=== PATIENT | male | born 1970 | race Caucasian/White ===

== ENCOUNTER 2019-03-14 11:48 | Emergency (ER) | payer OTHER ==
[2019-03-14 11:52] VITALS: RESP 18; TEMP 97.3
[2019-03-14] MEDS ORDERED: ASPIRIN 81 MG PO STA (13:21)
[2019-03-14] MEDS ORDERED: SODIUM CHLORIDE 0.9% 500 ML 500 ML IV STA (13:21)
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
[2019-03-14 13:47] LABS: Basophils % (A) 0 %; Eosinophils # (A) 0.1 k/uL (0-0.7); Eosinophils % (A) 1 %; HCT 44.1 % (39.0-53.0); HGB 15.2 gm/dL (13.0-17.5); Lymphocytes # (A) 1.2 k/uL (1.0-4.8); Lymphocytes % (A) 18 %; MCH 30.9 pg (25.0-35.0); MCHC 34.4 g/dL (31.0-37.0); MCV 89.9 fL (80.0-100.0); Mean Platelet Volume 6.8; Monocytes # (A) 0.4 k/uL (0-1.0); Monocytes % (A) 5 %; Neutrophils # (A) 4.9 k/uL (1.3-7.7); Neutrophils % (A) 74 %; Platelet Count 250 k/uL (150-450); RBC 4.91 m/uL (4.30-5.90); RDW 14.6 % (11.5-15.5); WBC 6.6 k/uL (3.8-10.6)
--- NOTE | 2019-03-14 13:51 | XR ---
EXAMINATION TYPE: XR chest 2V DATE OF EXAM: 03/14/2019 COMPARISON: 03/20/2014 HISTORY: Chest and back pain TECHNIQUE: Frontal and lateral views of the chest are obtained. FINDINGS: There is no focal air space opacity, pleural effusion, or pneumothorax seen. The cardiac silhouette size is within normal limits. The osseous structures are intact. IMPRESSION: No acute cardiopulmonary process.
[2019-03-14 14:02] LABS: ALT 28 U/L (21-72); AST 19 U/L (17-59); African American GFR (CKD) >90 (>60 ml/min/1.73 sqM); Albumin 4.7 g/dL (3.5-5.0); Alkaline Phosphatase 59 U/L (38-126); Anion Gap 13 mmol/L; Blood Urea Nitrogen 12 mg/dL (9-20); Carbon Dioxide 23 mmol/L (22-30); Chloride 103 mmol/L (98-107); Glucose 90 mg/dL (74-99); Magnesium 1.8 mg/dL (1.6-2.3); Potassium 4.3 mmol/L (3.5-5.1); Sodium 139 mmol/L (137-145); Total Bilirubin 0.5 mg/dL (0.2-1.3); Total Protein 7.6 g/dL (6.3-8.2)
[2019-03-14 14:32] LABS: D-Dimer <0.17 mg/L FEU (<0.60); INR 0.9 (<1.2); Partial Thromboplastin Time 23.7 sec (22.0-30.0); Prothrombin Time 9.8 sec (9.0-12.0)
[2019-03-14 14:42] VITALS: BP 132/84; PULSE 86
== END 2019-03-14 15:12 | disposition home or self-care (01) ==
LOC: EC 11:48
DX: R07.89 Other chest pain (principal); R07.81 Pleurodynia; R19.7 Diarrhea, unspecified; F41.9 Anxiety disorder, unspecified; R45.1 Restlessness and agitation; F32.9 Major depressive disorder, single episode, unspecified; F17.200 Nicotine dependence, unspecified, uncomplicated; Z79.899 Other long term (current) drug therapy; Z87.820 Personal history of traumatic brain injury; Z86.14 Personal history of Methicillin resistant Staphylococcus aureus infection
CPT/HCPCS: 36415; 71046; 80053; 83735; 84484; 85025; 85379; 85610; 85730; 93005; 99284

== ENCOUNTER 2019-04-03 07:36 | Inpatient (IN) | payer MEDICAID, OTHER ==
[2019-04-03] MEDS ORDERED: LORazepam 1 MG TAB PO STA (07:59)
--- NOTE | 2019-04-03 08:24 | XR ---
EXAMINATION TYPE: XR hand complete LT , 4 VIEWS DATE OF EXAM ORDERED: 04/03/2019 HISTORY: pain, first digit pain. COMPARISON: Previous study dated 03/18/2014. FINDINGS: There is been a partial amputation of the distal phalanx of the left long finger. No acute fracture or dislocation is seen. IMPRESSION: 1. NO ACUTE OSSEOUS LESION. 2. EVIDENCE OF OLD TRAUMA.
[2019-04-03] MEDS ORDERED: LORazepam 2 MG/ML INJ IM STA ×2 (08:39→17:07)
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
[2019-04-03 09:06] LABS: Amphetamine Screen,Urine Detected (NotDetected); Barbiturate Screen,Urine Not Detected (NotDetected); Benzodiazepines Screen,Urine Not Detected (NotDetected); Cocaine Screen,Urine Not Detected (NotDetected); Methadone Screen, Urine Not Detected (NotDetected); Opiate Screen,Urine Not Detected (NotDetected); Oxycodone Screen, Urine Not Detected (NotDetected); Phencyclidine Screen,Urine Not Detected (NotDetected); Tricyclic Antidepressant,Urine Not Detected (NotDetected); Urn Cannabinoid Scrn Detected (NotDetected)
[2019-04-03] MEDS ORDERED: HALOPERIDOL LACTATE 5 MG/ML 1 ML VIAL IM STA (19:11)
[2019-04-04] MEDS ORDERED: LORazepam 1 MG TAB PO STA (03:30)
[2019-04-04] MEDS ORDERED: ALBUTEROL NEBULIZED 2.5 MG/3 ML INHALATION PRN (15:10)
[2019-04-04] MEDS ORDERED: MAG HYDROX/AL HYDROX/SIMETH 30 ML CUP PO PRN (15:11)
[2019-04-04] MEDS ORDERED: ACETAMINOPHEN TAB 325 MG TAB PO PRN (15:11)
[2019-04-04] MEDS ORDERED: LORazepam 1 MG TAB PO PRN (15:11)
[2019-04-04] MEDS ORDERED: MAGNESIUM HYDROXIDE 2,400 MG/10 ML CUP PO PRN (15:11)
[2019-04-04] MEDS ORDERED: ZIPRASIDONE 20 MG VIAL IM PRN (15:11)
[2019-04-04] MEDS ORDERED: LORazepam 2 MG/ML INJ IM PRN (15:13)
[2019-04-04] MEDS ORDERED: ALBUTEROL INHALER 60 PUFF/8 GM INHALER INHALATION PRN (15:21)
[2019-04-04] MEDS: NICOTINE 14MG/24HR PATCH TRANSDERM SCH ×2 (15:59→16:00)
[2019-04-05 08:56] LABS: Basophils % (A) 1 %; Eosinophils # (A) 0.2 k/uL (0-0.7); Eosinophils % (A) 3 %; HCT 42.4 % (39.0-53.0); HGB 14.5 gm/dL (13.0-17.5); Lymphocytes # (A) 2.1 k/uL (1.0-4.8); Lymphocytes % (A) 31 %; MCH 30.4 pg (25.0-35.0); MCHC 34.2 g/dL (31.0-37.0); MCV 88.8 fL (80.0-100.0); Mean Platelet Volume 6.5; Monocytes # (A) 0.4 k/uL (0-1.0); Monocytes % (A) 5 %; Neutrophils % (A) 59 %; Platelet Count 290 k/uL (150-450); RBC 4.77 m/uL (4.30-5.90); RDW 15.1 % (11.5-15.5); WBC 6.8 k/uL (3.8-10.6)
[2019-04-05] MEDS ORDERED: FLUoxetine HCL 20 MG CAP PO SCH (09:00)
[2019-04-05 09:43] LABS: ALT 21 U/L (21-72); AST 25 U/L (17-59); African American GFR (CKD) >90 (>60 ml/min/1.73 sqM); Albumin 4.3 g/dL (3.5-5.0); Alkaline Phosphatase 61 U/L (38-126); Anion Gap 7 mmol/L; Blood Urea Nitrogen 20 mg/dL (9-20); Calcium 9.5 mg/dL (8.4-10.2); Carbon Dioxide 29 mmol/L (22-30); Chloride 105 mmol/L (98-107); Cholesterol 151 mg/dL (<200); Glucose 94 mg/dL (74-99); HDL Cholesterol 67 mg/dL (40-60); LDL Cholesterol,Calculated 52 mg/dL (0-99); Potassium 4.6 mmol/L (3.5-5.1); Sodium 141 mmol/L (137-145); Total Bilirubin 0.7 mg/dL (0.2-1.3); Triglycerides 158 mg/dL (<150)
[2019-04-05] MEDS: MULTIVITAMINS, THERA 1 EACH TAB PO SCH (09:44)
[2019-04-05] MEDS: NICOTINE 14MG/24HR PATCH TRANSDERM SCH ×2 (09:44→09:50)
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
[2019-04-05] MEDS ORDERED: hydrOXYzine PAMOATE 25 MG CAP PO PRN (12:54)
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
[2019-04-05] MEDS: risperiDONE 1 MG TAB PO SCH ×2 (14:26→21:33)
--- NOTE | 2019-04-05 16:18 | XR ---
EXAMINATION TYPE: XR cervical spine comp DATE OF EXAM: 04/05/2019 TECHNIQUE: Frontal, lateral, oblique, swimmers, and open mouth view of the cervical spine are obtaine d. HISTORY: head injury COMPARISON: None FINDINGS: The cervical spine is visualized in its entirety from C1 thru the top of T1 level, it is s atisfactory in alignment without evidence of acute fracture or dislocation. The pre-vertebral soft t issue appears within normal limits. The C1-C2 articulation is within normal limits on the open mouth view. Minimal retrolisthesis is seen of C3 on C4 and C4 and C5. Multilevel uncovertebral hypertrophy and facet arthropathy are noted. Small anterior osteophytes and intervertebral disc space narrowing are present. There is at least mild neural foraminal narrowing present at C3-C4, C4-C5, C5-C6, and C6 -C7 on the right hand at C5, C5-C6 and C6-C7 on the left. IMPRESSION: No acute fracture or malalignment is seen in the cervical spine. Moderate multilevel deg enerative disc disease as detailed above. Degree of neuroforaminal narrowing could be further assesse d with MRI.
[2019-04-05 19:38] LABS: Hemoglobin A1C 5.4 % (4.0-6.0)
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
[2019-04-06] MEDS: MULTIVITAMINS, THERA 1 EACH TAB PO SCH (08:01)
[2019-04-06] MEDS: risperiDONE 1 MG TAB PO SCH ×2 (08:01→21:40)
[2019-04-06] MEDS: NICOTINE 14MG/24HR PATCH TRANSDERM SCH (08:01)
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
--- NOTE | 2019-04-06 14:54 | P.PN ---
Progress Note - Text Progress Note Date: 04/06/[address] Head also without intracranial structural changes. Suggest outpatient neuro follow-up for continued management of post-concussive syndrome. No further inpatient neuro recs. We will sign off. Please call with new ?.
[2019-04-06] MEDS: SERTRALINE 50 MG TAB PO SCH (14:59)
[2019-04-06] MEDS: IBUPROFEN 600 MG TAB PO PRN (17:47)
[2019-04-07] MEDS: IBUPROFEN 600 MG TAB PO PRN ×2 (07:41→22:08)
[2019-04-07] MEDS: MULTIVITAMINS, THERA 1 EACH TAB PO SCH (08:15)
[2019-04-07] MEDS: NICOTINE 14MG/24HR PATCH TRANSDERM SCH (08:15)
[2019-04-07] MEDS: risperiDONE 1 MG TAB PO SCH ×2 (08:15→22:08)
[2019-04-07] MEDS: SERTRALINE 50 MG TAB PO SCH (08:15)
--- NOTE | 2019-04-07 08:48 | EEG ---
ELECTROENCEPHALOGRAM REPORT DATE OF TESTIN04/06/2019. CLINICAL PROBLEM: Head injury with dizziness, mood disturbance and psychosis. EEG was requested to rule out epileptic activity. MEDICATIONS: Geodon, Risperdal, multivitamin, milk of magnesia, Ativan, Motrin, Vistaril, albuterol, Maalox, Tylenol. TYPE OF RECORDING: Bedside tracing using the 10-20 international electrode placement system. No sedation was given prior to the beginning of this recording. FINDINGS: The background of this tracing is seen with a symmetric alpha rhythm of 8-10 hertz that attenuates on eye opening and returns upon eye closure. There are scattered eye blink and EMG artifacts. Photic stimulation elicits a symmetric driving response. Hyperventilation is not performed in this recording. There is no definitive sleep architecture seen. There is no background asymmetry, ictal or interictal patterns appreciated. IMPRESSION: This is a normal awake electroencephalogram without background asymmetry or epileptiform discharges. Clinical correlation is advised. STU / SELVINN: [id number] / MTDEmery
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
[2019-04-07] MEDS: hydrOXYzine PAMOATE 25 MG CAP PO SCH (22:08)
[2019-04-08] MEDS: hydrOXYzine PAMOATE 25 MG CAP PO SCH ×2 (08:41→20:12)
[2019-04-08] MEDS: IBUPROFEN 600 MG TAB PO PRN (08:41)
[2019-04-08] MEDS: MULTIVITAMINS, THERA 1 EACH TAB PO SCH (08:41)
[2019-04-08] MEDS: risperiDONE 1 MG TAB PO SCH ×2 (08:42→20:12)
[2019-04-08] MEDS: NICOTINE 14MG/24HR PATCH TRANSDERM SCH (08:42)
[2019-04-08] MEDS ORDERED: SERTRALINE 100 MG TAB PO SCH (09:00)
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
[2019-04-08] MEDS: ACETAMINOPHEN TAB 325 MG TAB PO PRN (18:57)
[2019-04-09] MEDS: ACETAMINOPHEN TAB 325 MG TAB PO PRN ×3 (03:22→20:17)
[2019-04-09] MEDS: NICOTINE 14MG/24HR PATCH TRANSDERM SCH (07:52)
[2019-04-09] MEDS: hydrOXYzine PAMOATE 25 MG CAP PO SCH ×2 (07:52→20:16)
[2019-04-09] MEDS: MULTIVITAMINS, THERA 1 EACH TAB PO SCH (07:52)
[2019-04-09] MEDS: risperiDONE 1 MG TAB PO SCH ×2 (07:52→20:16)
[2019-04-09] MEDS ORDERED: SERTRALINE 100 MG TAB PO SCH (09:00)
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
[2019-04-10] MEDS: ACETAMINOPHEN TAB 325 MG TAB PO PRN ×3 (08:06→19:53)
[2019-04-10] MEDS: MULTIVITAMINS, THERA 1 EACH TAB PO SCH (08:08)
[2019-04-10] MEDS: SERTRALINE 50 MG TAB PO SCH (08:09)
[2019-04-10] MEDS: hydrOXYzine PAMOATE 25 MG CAP PO SCH ×2 (08:09→19:52)
[2019-04-10] MEDS: NICOTINE 14MG/24HR PATCH TRANSDERM SCH (08:09)
[2019-04-10] MEDS: risperiDONE 1 MG TAB PO SCH ×2 (08:09→19:52)
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
[2019-04-11] MEDS: ACETAMINOPHEN TAB 325 MG TAB PO PRN ×2 (06:53→19:35)
[2019-04-11] MEDS: hydrOXYzine PAMOATE 25 MG CAP PO SCH ×2 (08:32→20:12)
[2019-04-11] MEDS: MULTIVITAMINS, THERA 1 EACH TAB PO SCH (08:32)
[2019-04-11] MEDS: risperiDONE 1 MG TAB PO SCH (08:32)
[2019-04-11] MEDS: SERTRALINE 50 MG TAB PO SCH (08:32)
[2019-04-11] MEDS: NICOTINE 14MG/24HR PATCH TRANSDERM SCH (08:32)
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
[2019-04-11] MEDS: DIVALPROEX ER 250 MG TAB.ER.24H PO SCH ×2 (12:00→20:12)
[2019-04-11] MEDS: risperiDONE 2 MG TAB PO SCH (20:12)
[2019-04-12] MEDS: ACETAMINOPHEN TAB 325 MG TAB PO PRN ×3 (02:58→17:55)
[2019-04-12] MEDS: hydrOXYzine PAMOATE 25 MG CAP PO SCH ×2 (09:08→19:57)
[2019-04-12] MEDS: SERTRALINE 50 MG TAB PO SCH (09:08)
[2019-04-12] MEDS: DIVALPROEX ER 250 MG TAB.ER.24H PO SCH (09:08)
[2019-04-12] MEDS: MULTIVITAMINS, THERA 1 EACH TAB PO SCH (09:08)
[2019-04-12] MEDS: risperiDONE 1 MG TAB PO SCH (09:08)
[2019-04-12] MEDS: NICOTINE 14MG/24HR PATCH TRANSDERM SCH (09:11)
--- NOTE | 2019-04-12 13:48 | P.PN ---
Progress Note - Text Progress Note Date: 04/12/19 Interval History: Patient was seen in his room and was agreeable to speak to life underwriter in his room with the lights on. Patient had put on his sunglasses during the interview. He stated that his "hallucinations" and paranoia has been improving and claims that he has not experienced any hallucinations in the past 24 hours. He states that he is feeling less angry today and feels like his mood is "more stable". Patient denies any depressive symptoms at this time denies any anxiety. Patient spoke about different options for following up with psychiatrist as an outpatient and where he should be going. Patient claims that he is continuing to improve mildly with regard to his irritability. He continues to state that he is having headaches related to his head injury however did state that the Depakote has been helping it and state that he was able to function much better yesterday. Patient states that he is sleeping well on the current medications. At this time patient denies any suicidal or homical ideations, intent or plan. Patient denies any auditory, visual hallucinations and denies any paranoia or delusions. Patient denies any side effects from the medications and has been compliant with meds. Mental Status Exam: General Appearance: Patient appears to be stated age is alert, directable and cooperative. Patient has fair hygiene and fair grooming. Patient is wearing sunglasses. Behavior: Patient is calmly seated without any agitated behavior. He appears to be aggravated by bright lights. Speech: Patient's speech is fluent and nonpressured. Mood/Affect: Mood is improving mildly, affect is congruent and constricted. Suicidality/Homicidality: Patient denies having any suicidal or homicidal ideation intent or plan. Perceptions: Patient denies any auditory or visual hallucinations. Though content/process: There is no evidence of any delusional thought content and thought process is linear and goal-directed. Memory and concentration: AOX3, grossly intact for the purposes of this session Judgment and insight: fair, improving mildly. 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 History of traumatic brain injury Plan: -Patient continues to meet criteria for inpatient psychiatric admission for symptom stabilization and safety. Patient has signed adult voluntary form and medication consent and was placed in patient's chart. -Medications: Will continue with with Risperdal 1 mg +2 mg for psychosis/irritability. We'll continue with Vistaril to 25 mg twice a day scheduled for anxiety. Will continue with Zoloft 150 mg for mood/anxiety. We'll increase Depakote 250 mg + 500 mg a day for both headache prophylaxis and mood stabilization. -Acetaminophen and ibuprofen for headaches. -When necessary Ativan for agitation/aggression. -Appreciate recommendations from neurology consult. Will consider MRI if patient is not improving during clinical course. Patient will need to be following up with a neurologist as an outpatient upon discharge. -Patient did receive a computed tomography scan of his head which did not show any acute changes. X-ray of cervical spine did not show any acute fracture or malalignment however showed mild degenerative disc disease. Patient underwent an EEG which did not show any seizure activity as per the neurology note. -NRT -Nicorette gum when necessary -SW on board for discharge planning.
[2019-04-12] MEDS: risperiDONE 2 MG TAB PO SCH (19:58)
[2019-04-12] MEDS ORDERED: DIVALPROEX ER 500 MG TAB.ER.24H PO SCH (21:00)
[2019-04-13] MEDS: IBUPROFEN 600 MG TAB PO PRN (04:12)
[2019-04-13] MEDS: SERTRALINE 50 MG TAB PO SCH (08:45)
[2019-04-13] MEDS: hydrOXYzine PAMOATE 25 MG CAP PO SCH ×2 (08:45→20:14)
[2019-04-13] MEDS: MULTIVITAMINS, THERA 1 EACH TAB PO SCH (08:45)
[2019-04-13] MEDS: risperiDONE 1 MG TAB PO SCH ×2 (08:45→20:14)
[2019-04-13] MEDS: NICOTINE 14MG/24HR PATCH TRANSDERM SCH (08:46)
[2019-04-13] MEDS ORDERED: DIVALPROEX ER 250 MG TAB.ER.24H PO SCH (09:00)
--- NOTE | 2019-04-13 10:16 | P.PN ---
Progress Note - Text Progress Note Date: 04/13/19 Interval History: Patient was seen in his room and was agreeable to speak to senior medical writer in his room. Patient did not need sunglasses during the interview today and appeared to have a brighter affect and more energy. Patient states that he had poor sleep last night and claimed that he only slept 2-3 hours and laid awake the rest of the time. He stated that his "hallucinations" and paranoia has been improving however did claim that he heard the telephone ringing late at night which she does not know if it's real or not. He states that his irritability has been improving and currently denies any depressive symptoms at this time denies any anxiety. Patient stated that his headaches have improved dramatically since being started on the Depakote and having the dose increased. Patient stated that today he is going to go to more groups and try to participate as much as he can. At this time patient denies any suicidal or homical ideations, intent or plan. Patient denies any side effects from the medications and has been compliant with meds. Mental Status Exam: General Appearance: Patient appears to be stated age is alert, directable and cooperative. Patient has fair hygiene and fair grooming. Behavior: Patient is calmly seated without any agitated behavior. Speech: Patient's speech is fluent and nonpressured. Mood/Affect: Mood is improving mildly, affect is congruent Suicidality/Homicidality: Patient denies having any suicidal or homicidal ideation intent or plan. Perceptions: Patient denies any auditory or visual hallucinations. Though content/process: There is no evidence of any delusional thought content and thought process is linear and goal-directed. Memory and concentration: AOX3, grossly intact for the purposes of this session Judgment and insight: fair, improving mildly. 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 History of traumatic brain injury Plan: -Patient continues to meet criteria for inpatient psychiatric admission for symptom stabilization and safety. Patient has signed adult voluntary form and medication consent and was placed in patient's chart. -Medications: Will switch Risperdal to 3 mg nightly for psychosis/irritability to help with sleep. We'll continue with Vistaril to 25 mg twice a day scheduled for anxiety. Will continue with Zoloft 150 mg for mood/anxiety. We'll increase and switch Depakote to 1000 mg daily at bedtime for both headache prophylaxis and mood stabilization. -Acetaminophen and ibuprofen for headaches. -When necessary Ativan for agitation/aggression. -Neurology recommendations - Will consider MRI if patient is not improving during clinical course. Patient will need to be following up with a neurologist as an outpatient upon discharge. -Patient did receive a computed tomography scan of his head which did not show any acute changes. X-ray of cervical spine did not show any acute fracture or malalignment however showed mild degenerative disc disease. Patient underwent an EEG which did not show any seizure activity as per the neurology note. -NRT -Nicorette gum when necessary -SW on board for discharge planning.
[2019-04-13] MEDS: DIVALPROEX ER 500 MG TAB.ER.24H PO SCH (20:14)
[2019-04-14] MEDS: ACETAMINOPHEN TAB 325 MG TAB PO PRN ×2 (04:37→12:13)
[2019-04-14 05:36] VITALS: RESP 16
[2019-04-14] MEDS: SERTRALINE 50 MG TAB PO SCH (08:43)
[2019-04-14] MEDS: hydrOXYzine PAMOATE 25 MG CAP PO SCH ×2 (08:43→20:36)
[2019-04-14] MEDS: MULTIVITAMINS, THERA 1 EACH TAB PO SCH (08:43)
[2019-04-14] MEDS: NICOTINE 14MG/24HR PATCH TRANSDERM SCH (08:55)
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
[2019-04-14] MEDS: IBUPROFEN 600 MG TAB PO PRN (16:24)
[2019-04-14] MEDS: DIVALPROEX ER 500 MG TAB.ER.24H PO SCH (20:35)
[2019-04-14] MEDS: risperiDONE 1 MG TAB PO SCH (20:35)
[2019-04-14] MEDS: MELATONIN 5 MG TABLET PO SCH (20:35)
[2019-04-15] MEDS: NICOTINE 14MG/24HR PATCH TRANSDERM SCH (07:58)
[2019-04-15] MEDS: hydrOXYzine PAMOATE 25 MG CAP PO SCH ×2 (07:58→20:08)
[2019-04-15] MEDS: MULTIVITAMINS, THERA 1 EACH TAB PO SCH (07:58)
[2019-04-15] MEDS: SERTRALINE 50 MG TAB PO SCH (07:58)
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
[2019-04-15] MEDS: ACETAMINOPHEN TAB 325 MG TAB PO PRN (16:37)
[2019-04-15] MEDS: DIVALPROEX ER 500 MG TAB.ER.24H PO SCH (20:08)
[2019-04-15] MEDS: risperiDONE 1 MG TAB PO SCH (20:08)
[2019-04-15] MEDS: MELATONIN 5 MG TABLET PO SCH (21:25)
[2019-04-16] MEDS: ACETAMINOPHEN TAB 325 MG TAB PO PRN (04:14)
[2019-04-16] MEDS: MULTIVITAMINS, THERA 1 EACH TAB PO SCH (07:52)
[2019-04-16] MEDS: hydrOXYzine PAMOATE 25 MG CAP PO SCH ×2 (07:52→20:26)
[2019-04-16] MEDS: NICOTINE 14MG/24HR PATCH TRANSDERM SCH (07:52)
[2019-04-16] MEDS: SERTRALINE 50 MG TAB PO SCH (07:53)
--- NOTE | 2019-04-16 12:15 | P.PN ---
Progress Note - Text Interval history: The patient's found in his room he follows me to an interview room. He indicates his mood is getting better. He is reporting no auditory or visual hallucinations. He has no questions or concerns regarding his medication. He states he's been increasing his group participation. Appetite is stable. He has no questions or concerns today. Mental status exam: The patient is a balding male appearing his stated age. He stressors own clothing hygiene grooming are adequate he wears eyeglasses. Eye contact is appropriate speech is fluent spontaneous nonpressured. He indicates his mood is getting better. Affect is euthymic. He reports no suicidal or homicidal ideation intent or plan. He reports no au ditory or visual hallucinations or any specific delusions. He demonstrates no evidence of hypomania or jorge. Insight and judgment improving. He reports future oriented thinking. He demonstrates no verbal or physical aggressiveness he demonstrates no involuntary repetitive movements. Plan: The patient will continue his current psychotropic medication. He is encouraged to fully participate in the milieu. We will monitor him for safety. Vital signs reviewed.
[2019-04-16] MEDS: DIVALPROEX ER 500 MG TAB.ER.24H PO SCH (20:26)
[2019-04-16] MEDS: MELATONIN 5 MG TABLET PO SCH (20:26)
[2019-04-16] MEDS: risperiDONE 1 MG TAB PO SCH (20:27)
[2019-04-17 06:55] VITALS: TEMP 98.2
[2019-04-17] MEDS: NICOTINE 14MG/24HR PATCH TRANSDERM SCH (07:36)
[2019-04-17] MEDS: hydrOXYzine PAMOATE 25 MG CAP PO SCH ×2 (07:37→20:18)
[2019-04-17] MEDS: SERTRALINE 50 MG TAB PO SCH (07:37)
[2019-04-17] MEDS: MULTIVITAMINS, THERA 1 EACH TAB PO SCH (07:37)
--- NOTE | 2019-04-17 11:53 | P.PN ---
Progress Note - Text Interval history: The patient is found in the hallway he follows me to an interview room. He indicates his mood is improving. He feels that the Zoloft dose may be too high as he feels more energetic than usual. He wants to consider reducing to 100 mg. He's been compliant with his medication. He has been attending groups. He indicates he slept well last night appetite is stable. He states that he continues to remind himself that he needs to discontinue use of alcohol. He demonstrates future oriented thinking. Mental status exam: The patient is alert he is a balding male he is wearing his own clothing hygiene grooming adequate. Speech is fluent spontaneous nonpressured. He has a healing scar on his forehead. He indicates his mood is getting better he is reporting no suicidal or homicidal ideation intent or plan. He is reporting no auditory hallucinations today. He states that yesterday he heard a female voice call his name. No visual hallucinations. He endorses no specific delusions. He demonstrates no tangential thinking loose associations or flight of ideas. He does not appear hypomanic or manic. He demonstrates no verbal or physical aggressiveness. He demonstrates no involuntary repetitive movements. Insight and judgment improving. Plan: The patient will continue on his current medications. He states he will discuss the Zoloft dose with Dr. Martinez tomorrow in terms of potentially reducing it. We will continue to monitor him for safety and encourage participation in the milieu. Vital signs reviewed.
[2019-04-17] MEDS: DIVALPROEX ER 500 MG TAB.ER.24H PO SCH (20:17)
[2019-04-17] MEDS: risperiDONE 1 MG TAB PO SCH (20:18)
[2019-04-17] MEDS: MELATONIN 5 MG TABLET PO SCH (22:49)
[2019-04-18] MEDS: ACETAMINOPHEN TAB 325 MG TAB PO PRN (06:13)
[2019-04-18 06:58] VITALS: BP 127/61; PULSE 94
[2019-04-18] MEDS: SERTRALINE 50 MG TAB PO SCH (08:35)
[2019-04-18] MEDS: MULTIVITAMINS, THERA 1 EACH TAB PO SCH (08:35)
[2019-04-18] MEDS: hydrOXYzine PAMOATE 25 MG CAP PO SCH (08:35)
[2019-04-18] MEDS: NICOTINE 14MG/24HR PATCH TRANSDERM SCH (08:37)
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
[2019-04-19] MEDS ORDERED: SERTRALINE 100 MG TAB PO SCH (09:00)
== END 2019-04-18 13:15 | disposition home or self-care (01) | DRG 885 ==
LOC: EC 07:36 → 3MHU 04-04 14:58
PROVIDERS: ADMIT Psychiatry & Neurology Psychiatry; ATTEND Psychiatry & Neurology Psychiatry
DX: F29 Unspecified psychosis not due to a substance or known physiological condition (principal); F07.81 Postconcussional syndrome; F12.19 Cannabis abuse with unspecified cannabis-induced disorder; F17.210 Nicotine dependence, cigarettes, uncomplicated; Z87.820 Personal history of traumatic brain injury; Z79.899 Other long term (current) drug therapy; Z81.8 Family history of other mental and behavioral disorders; Z91.010 Allergy to peanuts
CPT/HCPCS: 70450; 72050; 80053; 80061; 80306; 82075; 83036; 84443; 85025; 94640; 95816; 96372; 99285

== ENCOUNTER 2019-05-21 15:31 | Emergency (ER) | payer OTHER ==
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
[2019-05-21 16:10] LABS: Basophils # (A) 0.1 k/uL (0-0.2); Basophils % (A) 1 %; Eosinophils # (A) 0.1 k/uL (0-0.7); Eosinophils % (A) 3 %; HCT 36.2 % (39.0-53.0); HGB 12.6 gm/dL (13.0-17.5); Lymphocytes # (A) 0.8 k/uL (1.0-4.8); Lymphocytes % (A) 19 %; MCH 30.8 pg (25.0-35.0); MCHC 34.8 g/dL (31.0-37.0); MCV 88.5 fL (80.0-100.0); Mean Platelet Volume 6.4; Monocytes # (A) 0.3 k/uL (0-1.0); Monocytes % (A) 7 %; Neutrophils # (A) 2.9 k/uL (1.3-7.7); Neutrophils % (A) 67 %; Platelet Count 264 k/uL (150-450); RBC 4.09 m/uL (4.30-5.90); WBC 4.3 k/uL (3.8-10.6)
[2019-05-21 16:27] LABS: ALT 23 U/L (21-72); AST 23 U/L (17-59); African American GFR (CKD) >90 (>60 ml/min/1.73 sqM); Albumin 3.9 g/dL (3.5-5.0); Alkaline Phosphatase 61 U/L (38-126); Anion Gap 6 mmol/L; Blood Urea Nitrogen 19 mg/dL (9-20); Calcium 8.7 mg/dL (8.4-10.2); Carbon Dioxide 25 mmol/L (22-30); Chloride 108 mmol/L (98-107); Glucose 133 mg/dL (74-99); Potassium 3.9 mmol/L (3.5-5.1); Sodium 139 mmol/L (137-145); Total Bilirubin 0.2 mg/dL (0.2-1.3); Total Protein 6.3 g/dL (6.3-8.2)
[2019-05-22 00:18] VITALS: BP 102/57; PULSE 71; RESP 18; TEMP 97.9
== END 2019-05-22 01:26 ==
LOC: EC 15:31
DX: F31.9 Bipolar disorder, unspecified (principal); F17.200 Nicotine dependence, unspecified, uncomplicated; Z79.899 Other long term (current) drug therapy; Z91.010 Allergy to peanuts
CPT/HCPCS: 36415; 80053; 82075; 85025; 99285

== ENCOUNTER 2020-02-23 14:24 | Inpatient (IN) | payer OTHER ==
[2020-02-23] MEDS ORDERED: SODIUM CHLORIDE 0.9% 500 ML 500 ML IV STA (14:51)
[2020-02-23 15:28] LABS: Basophils # (A) 0.1 k/uL (0-0.2); Basophils % (A) 1 %; Eosinophils # (A) 0.2 k/uL (0-0.7); Eosinophils % (A) 3 %; HCT 43.9 % (39.0-53.0); HGB 14.3 gm/dL (13.0-17.5); Lymphocytes # (A) 1.6 k/uL (1.0-4.8); Lymphocytes % (A) 26 %; MCH 29.6 pg (25.0-35.0); MCHC 32.6 g/dL (31.0-37.0); MCV 90.5 fL (80.0-100.0); Monocytes # (A) 0.3 k/uL (0-1.0); Monocytes % (A) 5 %; Neutrophils % (A) 64 %; Platelet Count 259 k/uL (150-450); RBC 4.85 m/uL (4.30-5.90); RDW 12.5 % (11.5-15.5); WBC 6.3 k/uL (3.8-10.6)
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
--- NOTE | 2020-02-23 15:40 | XR ---
EXAMINATION TYPE: XR shoulder complete LT DATE OF EXAM: 02/23/2020 COMPARISON: NONE HISTORY: Pain TECHNIQUE: Three views are submitted. FINDINGS: The osseous structures are intact. There is no acute fracture or dislocation. Arthropathy of the ketan ulder.. IMPRESSION: 1. No acute process.
[2020-02-23 15:41] LABS: ALT 14 U/L (4-49); AST 16 U/L (17-59); African American GFR (CKD) >90 (>60 ml/min/1.73 sqM); Albumin 4.6 g/dL (3.5-5.0); Alkaline Phosphatase 54 U/L (38-126); Anion Gap 7 mmol/L; Blood Urea Nitrogen 12 mg/dL (9-20); Calcium 9.4 mg/dL (8.4-10.2); Carbon Dioxide 30 mmol/L (22-30); Chloride 103 mmol/L (98-107); Glucose 83 mg/dL (74-99); Magnesium 1.9 mg/dL (1.6-2.3); Non-African American GFR(CKD) >90 (>60 ml/min/1.73 sqM); Phosphorus 4.8 mg/dL (2.5-4.5); Potassium 4.1 mmol/L (3.5-5.1); Sodium 140 mmol/L (137-145); Total Bilirubin 0.5 mg/dL (0.2-1.3); Total Protein 6.8 g/dL (6.3-8.2)
[2020-02-23 15:49] LABS: INR 0.9 (<1.2); Partial Thromboplastin Time 22.3 sec (22.0-30.0); Prothrombin Time 9.7 sec (9.0-12.0)
[2020-02-23 16:57] LABS: Appearance,Urine Clear (Clear); Bilirubin,Urine Negative (Negative); Blood,Urine Negative (Negative); Color,Urine Yellow; Glucose,Urine (UA) Negative (Negative); Ketones,Urine Negative (Negative); Leukocyte Esterase,Urine Negative (Negative); Nitrite,Urine Negative (Negative); PH, Urine 6.5 (5.0-8.0); Protein,Urine Negative (Negative); Specific Gravity,Urine 1.008 (1.001-1.035); Urobilinogen,Urine <2.0 mg/dL (<2.0)
[2020-02-23] MEDS ORDERED: NALOXONE 0.4 MG/ML 1 ML VIAL IV PRN (17:22)
[2020-02-23] MEDS: SODIUM CHLORIDE 0.9% 1,000 ML IV SCH (17:59)
[2020-02-23] MEDS: MORPHINE SULFATE 4 MG/ML SYRINGE IVP PRN ×2 (18:21→23:51)
[2020-02-23] MEDS: DIVALPROEX 500 MG TABLET.DR PO SCH (21:00)
[2020-02-23] MEDS: diazePAM 5 MG TAB PO PRN (21:09)
[2020-02-24] MEDS: MORPHINE SULFATE 4 MG/ML SYRINGE IVP PRN ×3 (08:32→21:15)
[2020-02-24] MEDS: MULTIVITAMINS, THERA 1 EACH TAB PO SCH (08:34)
[2020-02-24] MEDS: SODIUM CHLORIDE 0.9% 1,000 ML IV SCH (08:35)
[2020-02-24] MEDS: DIVALPROEX 500 MG TABLET.DR PO SCH ×2 (08:35→21:14)
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
[2020-02-24] MEDS ORDERED: DEXTROSE 5%-0.45% NACL 1,000 ML IV SCH (12:30)
[2020-02-24] MEDS: diazePAM 5 MG TAB PO PRN (13:05)
[2020-02-24] MEDS: DEXTROSE 5%-0.9% NACL 1,000 ML IV SCH (13:06)
[2020-02-24 14:04] VITALS: BMI 19.8
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
[2020-02-25] MEDS: diazePAM 5 MG TAB PO PRN ×3 (00:51→20:44)
[2020-02-25] MEDS: DEXTROSE 5%-0.9% NACL 1,000 ML IV SCH ×3 (02:55→17:52)
[2020-02-25] MEDS: MORPHINE SULFATE 4 MG/ML SYRINGE IVP PRN ×3 (06:01→20:34)
[2020-02-25 07:39] LABS: Basophils % (A) 1 %; Eosinophils # (A) 0.2 k/uL (0-0.7); Eosinophils % (A) 4 %; HCT 37.3 % (39.0-53.0); HGB 12.3 gm/dL (13.0-17.5); Lymphocytes # (A) 1.2 k/uL (1.0-4.8); Lymphocytes % (A) 30 %; MCH 29.9 pg (25.0-35.0); MCV 90.6 fL (80.0-100.0); Mean Platelet Volume 7.1; Monocytes # (A) 0.2 k/uL (0-1.0); Monocytes % (A) 6 %; Neutrophils # (A) 2.3 k/uL (1.3-7.7); Neutrophils % (A) 59 %; Platelet Count 224 k/uL (150-450); RBC 4.12 m/uL (4.30-5.90); RDW 12.4 % (11.5-15.5); WBC 3.9 k/uL (3.8-10.6)
[2020-02-25 07:52] LABS: African American GFR (CKD) >90 (>60 ml/min/1.73 sqM); Anion Gap 4 mmol/L; Blood Urea Nitrogen 9 mg/dL (9-20); Calcium 8.7 mg/dL (8.4-10.2); Carbon Dioxide 29 mmol/L (22-30); Chloride 108 mmol/L (98-107); Glucose 87 mg/dL (74-99); Non-African American GFR(CKD) >90 (>60 ml/min/1.73 sqM); Potassium 3.9 mmol/L (3.5-5.1); Sodium 141 mmol/L (137-145)
[2020-02-25] MEDS: DIVALPROEX 500 MG TABLET.DR PO SCH ×2 (08:58→20:42)
[2020-02-25] MEDS: MULTIVITAMINS, THERA 1 EACH TAB PO SCH (08:58)
--- NOTE | 2020-02-25 10:53 | P.PN ---
Subjective This is a pleasant 49 years old male with no significant past medical history. He was recently found to have esophageal mass status post biopsy which is pending. He follows up with Dr. Hayden. Patient presents because of recurrent falls for the last 3-4 months, has been falling every 2-3 days without losing consciousness but because he feels gen erally weak. Last time he fell 2 days ago he could not get up from bed and they have to call EMS for him and that's why he came to emergency room. He feel weakness in all extremities and body but more in his right leg and left arm. No headache or back pain. No slurred speech or blurred vision No diarrhea or urinary probability. He has dysphagia for example he takes him an hour to eat a cheeseburger. Bedside swallow evaluation was started by nurse and was placed on a pured diet which he tolerates well currently. He has esophageal mass as per EGD done for him by Dr. Joseph at [facility] last Thursday, he was told that his biopsy will be available this coming Thursday on 02/27. Also patient is complaining of from suicidal ideation and he was thinking of her again himself yesterday however today he denies suicidal ideation. He follows up with his psychiatrist Dr. Flores for his history of bipolar, ADHD age and PTSD Presents because of difficulty to eat and drink for 3-4 months associated with generalized weakness and malaise and loss of weight Vitals looks stable and patient is afebrile. Labs including CBC, BMP, liver enzymes and urinalysis are unremarkable. EKG: Showed normal sinus rhythm at [address]-T changes. CT of the brain: No acute process. Left shoulder x-ray: No acute process. He was started on normal saline at 75 02/24/2020 Patient is awake and alert, no new complaint. He is tolerating a pured diet however speech and swallow evaluation has been requested. He is still having the generalized weakness and neurology input is appreciated and they recommended MRI of the head and neck especially in view of his esophageal mass, we want to rule out metastatic lesion, patient informed and he agrees with the MRI. PT and OT were consulted and patient may need to go to inpatient rehab for aggressive strengthening 1-1 sitter is on bedside and psych consult is pending for his suicidal ideation. Also vitals and labs reviewed, blood pressure is low normal which looks like his baseline as patient is asymptomatic. Labs including CBC and BMP and TSH were reviewed and normal. B12 and folate are still pending. Review of Systems CONSTITUTIONAL: No fever, no malaise, no fatigue. HEENT: No recent visual problems or hearing problems. Denied any sore throat. CARDIOVASCULAR: No orthopnea, PND, no palpitations, no syncope. PULMONARY: No shortness of breath, no cough, no hemoptysis. GASTROINTESTINAL: No diarrhea, no nausea, no vomiting, no abdominal pain. Normoactive bowel sounds. NEUROLOGICAL: No headaches, no weakness, no numbness. HEMATOLOGICAL: Denies any bleeding or petechiae. GENITOURINARY: Denies any burning micturition, frequency, or urgency. MUSCULOSKELETAL/RHEUMATOLOGICAL: Denies any joint pain, swelling, or any muscle pain. ENDOCRINE: Denies any polyuria or polydipsia. Active Medications Generic Name Dose Route Start Last Admin Trade Name Freq PRN Reason Stop Dose Admin Aripiprazole 300 mg 03/01/20 09:00 Abilify Maintena IM Q28D ANSLEY Diazepam 10 mg 02/23/20 18:26 02/25/20 00:51 Valium PO 10 mg TID PRN Administration Anxiety Divalproex Sodium 500 mg 02/23/20 21:00 02/25/20 08:58 Depakote PO 500 mg BID ANSLEY Administration Dextrose/Sodium Chloride 1,000 mls @ 75 mls/hr 02/24/20 12:30 02/25/20 04:41 Dextrose 5%-Ns Iv Soln IV 75 mls/hr .[id number] ANSLEY Administration Morphine Sulfate 4 mg 02/23/20 17:37 02/25/20 06:01 Morphine Sulfate (Inj) IVP 4 mg Q6HR PRN Administration Pain Multivitamins 1 each 02/24/20 09:00 02/25/20 08:58 Theragran PO 1 each DAILY ANSLEY Administration Naloxone HCl 0.2 mg 02/23/20 17:22 Narcan IV Q2M PRN Opioid Reversal Objective - Vital Signs Vital signs: Vital Signs Temp 97.5 F L 02/25/20 07:00 Pulse 66 02/25/20 07:00 Resp 16 02/25/20 07:00 BP 90/63 02/25/20 07:00 Pulse Ox 94 L 02/25/20 07:00 Intake & Output 02/24/20 02/25/20 02/25/20 18:59 06:59 18:59 Intake Total 200 825 Balance 200 825 Weight 58.967 kg Intake: Intake, IV Titration 725 Amount Dextrose 5%-0.9% NaCl 1, 725 000 ml @ 75 mls/hr IV . [id number] ANSLEY Rx#:[id number] Oral 100 Other 200 Other: Voiding Method Toilet Toilet # Voids 1 1 # Bowel Movements 0 - Exam GENERAL: The patient is alert and oriented x3, not in any acute distress. Well developed, well nourished. HEENT: Pupils are round and equally reacting to light. EOMI. No scleral icterus. No conjunctival pallor. Normocephalic, atraumatic. No pharyngeal erythema. No thyromegaly. CARDIOVASCULAR: S1 and S2 present. No murmurs, rubs, or gallops. PULMONARY: Chest is clear to auscultation, no wheezing or crackles. ABDOMEN: Soft, nontender, nondistended, normoactive bowel sounds. No palpable organomegaly. MUSCULOSKELETAL: No joint swelling or deformity. EXTREMITIES: No cyanosis, clubbing, or pedal edema. -NEUROLOGICAL: Gross neurological examination did not reveal any focal deficits. Generalized weakness but more on the right upper extremity and the left lower extremity. No sensation loss SKIN: No rashes. No petechiae - Labs CBC & Chem 7: 02/25/20 07:25 02/25/20 07:25 Labs: Abnormal Lab Results - Last 24 Hours (Table) 02/25/20 02/25/20 Range/Units 07:25 07:25 RBC 4.12 L (4.30-5.90) m/uL Hgb 12.3 L (13.0-17.5) gm/dL Hct 37.3 L (39.0-53.0) % Chloride 108 H (98-107) mmol/L Assessment and Plan Assessment: Dysphagia, Difficulty eating and drinking with loss of weight Generalized weakness with more on the right leg and left arm Bipolar disorders with suicidal ideation. Also PTSD Recent history of esophageal mass status post biopsy which is pending Plan: This is a pleasant 49 years old male who presents with dysphagia and weight loss. He has also esophageal mass. We'll do a swallow evaluation, most likely patient will need placement for rehab given his generalized weakness and di fficulty moving, therefore we will switch the patient to inpatient and will order PT/OT evaluation. Because of his and symmetric weakness we'll ask for neurology evaluation. We'll ask for psychiatrist to evaluate the patient for so psych dilatation. With sitter at bedside Labs and medication were reviewed.. Continue same treatment. Continue with symptomatic treatment. Resume home medication. Monitor lytes and vitals. DVT and GI prophylaxis. Further recommendations of the clinical course of the patient DVT prophylaxis: Subcutaneous heparin GI Prophylaxis: Pepcid PT/OT: Pending Prognosis is guarded
--- NOTE | 2020-02-25 14:34 | MR ---
EXAMINATION TYPE: MR brain/cspine wo/w DATE OF EXAM: 02/25/2020 COMPARISON: Cervical spine 02/17/2013 HISTORY: LUE/RLE weakness CONTRAST: Standard multiplanar, multisequence MRI departmental protocol utilizing 6 mL intravenous Gadavist lena olinium contrast. Ventricles have normal size. There is no mass effect nor midline shift. There is no sign of intracran ial hemorrhage. On the FLAIR images there are 2 or 3 small high signal foci at the killian-white matter junction right parietal lobe measuring less than 3 mm. These are of doubtful significance. There is n o evidence of cortical infarct. Diffusion images are normal. Brainstem is intact. The corpus callosum appears normal. Sella turcica appears normal. Contrast images show no pathologic enhancement. There is normal enhancement of the venous sinuses. Cervical vertebra show normal alignment. There is degenerative disc space narrowing from C3 to C7 wit h spurring of the endplates. There is small posterior disc herniations from C4 to C7. There is a larg er posterior disc herniation and spurring at C3-4. The spinal canal is narrowed to 5 mm at C3-4. Cerv ical cord shows no edema. There is no compression fracture. Posterior elements appear intact. Contras t images show no pathologic enhancement. Spinal canal measures 7.2 mm at C4-5 and 8 mm at C5-6. IMPRESSION: Negative MR scan of the brain. There is a moderate-sized posterior disc herniation at C3-4 with 5 mm spinal stenosis which is a sign ificant adverse change compared to old exam. Disc herniation significantly increased at C3-4 compared to old exam. Smaller disc herniations at C5-6 and C6-7 not significantly different than old exam.
[2020-02-25 18:04] LABS: Folate, Serum 11.9 ng/mL
[2020-02-25] MEDS: HEPARIN SODIUM,PORCINE 5,000 UNIT/ML 1 ML VIAL SQ SCH (20:38)
[2020-02-25] MEDS: FAMOTIDINE 20 MG/2 ML VIAL IV SCH (20:41)
[2020-02-26] MEDS: MORPHINE SULFATE 4 MG/ML SYRINGE IVP PRN ×4 (03:56→23:37)
[2020-02-26] MEDS: DEXTROSE 5%-0.9% NACL 1,000 ML IV SCH ×2 (03:57→17:55)
[2020-02-26] MEDS: MULTIVITAMINS, THERA 1 EACH TAB PO SCH (08:22)
[2020-02-26] MEDS: HEPARIN SODIUM,PORCINE 5,000 UNIT/ML 1 ML VIAL SQ SCH ×2 (08:22→20:07)
[2020-02-26] MEDS: DIVALPROEX 500 MG TABLET.DR PO SCH ×2 (08:22→20:07)
[2020-02-26] MEDS: FAMOTIDINE 20 MG/2 ML VIAL IV SCH ×2 (08:22→20:07)
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
[2020-02-26] MEDS: diazePAM 5 MG TAB PO PRN (20:07)
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
[2020-02-27] MEDS: DEXTROSE 5%-0.9% NACL 1,000 ML IV SCH (05:19)
[2020-02-27] MEDS: MORPHINE SULFATE 4 MG/ML SYRINGE IVP PRN (05:19)
[2020-02-27 07:57] VITALS: RESP 17
[2020-02-27] MEDS: MULTIVITAMINS, THERA 1 EACH TAB PO SCH (09:02)
[2020-02-27] MEDS: FAMOTIDINE 20 MG/2 ML VIAL IV SCH (09:02)
[2020-02-27] MEDS: DIVALPROEX 500 MG TABLET.DR PO SCH ×2 (09:02→11:02)
[2020-02-27] MEDS: HEPARIN SODIUM,PORCINE 5,000 UNIT/ML 1 ML VIAL SQ SCH (09:03)
[2020-02-27] MEDS ORDERED: VALPROIC ACID ORAL SOLN 250 MG/5 ML CUP PO ONE (11:02)
[2020-02-27 13:43] VITALS: BP 100/66; PULSE 69; TEMP 98.5
--- NOTE | 2020-02-27 14:40 | CDI ---
Documentation Clarification Form Date: 02/27/2020 02:19:19 PM From: Tere Jaimes Phone: Admit Date: 02/24/2020 12:11:00 PM Patient Name: Meaghan Daly Visit Number: [id number] Discharge Date: ATTENTION: The Clinical Documentation Specialists (CDI) and [facility] Coding Staff appreciate your assistance in clarifying documentation. Please respond to the clarification below the line at the bottom and electronically sign. The CDI & [facility] Coding staff will review the response and follow-up if needed. Please note: Queries are made part of the Legal Health Record. If you have any questions, please contact the author of this message via ITS. Dr. Bradley Kim Failure to thrive is in the ED assessment and dietary consult. Request further specificity if indicted. History/Risk Factors: Esophageal mass, Memory impairment, Former smoker Clinical Indicators: 49-year-old male ho present to ED on 02/22 with complaints of generalized weakness, difficult chewing and swallowing. He has known esophageal mass with biopsy pending. He report weight loss for 9 months with greater than 34 lb weight loss per dietary assessment. 02/22 Vital signs: 103/68 63 16 98.4 99 % RA 02/22 CT Brain: no acute process 02/22 Labs: total protein 6.8 albumin 4.6 Current BMI: 19.8 Insufficient energy intake: Yes, generalized weakness Weight Loss:>34 lbs x 9 months Loss of subcutaneous fat: Yes Decreased hand waste picker strength: Generalized weakness Treatment: Monitor I/O Dietary Consult: Yes Supplements: Ensure Enlive TID General/healthful diet Texture-modified diet, Dysphagia I; pureed In your professional opinion, can you please clarify if these findings signify one of the following conditions? Mild Protein-Calorie Malnutrition Moderate Protein-Calorie Malnutrition Severe Protein-Calorie Malnutrition Other condition, please specify Unable to determine (Last Revision: January 2019) Moderate to severe Protein-Calorie Malnutrition, secondary to dysphagia due to his esophageal mass MTDD
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
[2020-02-27] MEDS ORDERED: VALPROIC ACID ORAL SOLN 250 MG/5 ML CUP PO SCH (21:00)
--- NOTE | 2020-02-29 11:11 | CDI ---
Documentation Clarification Form Date: 02/29/2020 10:55:20 AM From: Tere Jaimes RN, CCDS Admit Date: 02/24/2020 12:11:00 PM Patient Name: Meaghan Daly Visit Number: [id number] Discharge Date: 02/27/2020 03:22:00 PM ATTENTION: The Clinical Documentation Specialists (CDI) and [facility] Coding Staff appreciate your assistance in clarifying documentation. Please respond to the clarification below the line at the bottom and electronically sign. The CDI & [facility] Coding staff will review the response and follow-up if needed. Please note: Queries are made part of the Legal Health Record. If you have any questions, please contact the author of this message via ITS. Dr. Bradley Kim Moderate to Severe Protein -Calorie Malnutrition has been documented in your query response. Please provide the most appreciate diagnosis for the patient condition. History/Risk Factors: Esophageal mass, Memory impairment, Former smoker Clinical Indicators: 49-year-old male ho present to ED on 02/22 with complaints of generalized weakness, difficult chewing and swallowing. He has known esophageal mass with biopsy pending. He report weight loss for 9 months with greater than 34 lb weight loss per dietary assessment. 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
[2020-03-01] MEDS ORDERED: ARIPiprazole IM 400 MG VIAL (NO COST) PHARMACY STOCK IM SCH (09:00)
== END 2020-02-27 15:22 | disposition short-term general hospital (02) | DRG 552 ==
LOC: EC 14:24 → 1SOBS 17:27 → OBSVTOIN 02-24 12:11 → 5NMEDONC 02-24 14:45
PROVIDERS: ADMIT Hospitalist; ATTEND Hospitalist
DX: M50.21 Other cervical disc displacement, high cervical region (principal); R45.851 Suicidal ideations; E44.0 Moderate protein-calorie malnutrition; Z68.1 Body mass index [BMI] 19.9 or less, adult; M50.222 Other cervical disc displacement at C5-C6 level; R62.7 Adult failure to thrive; F31.9 Bipolar disorder, unspecified; F43.10 Post-traumatic stress disorder, unspecified; G89.29 Other chronic pain; K22.9 Disease of esophagus, unspecified; R13.10 Dysphagia, unspecified; Z20.828 Contact with and (suspected) exposure to other viral communicable diseases; F90.9 Attention-deficit hyperactivity disorder, unspecified type; R29.6 Repeated falls; M25.512 Pain in left shoulder; R63.4 Abnormal weight loss; R20.0 Anesthesia of skin; R41.3 Other amnesia; F43.21 Adjustment disorder with depressed mood; R42 Dizziness and giddiness; Z87.891 Personal history of nicotine dependence; Z79.899 Other long term (current) drug therapy; Z87.828 Personal history of other (healed) physical injury and trauma; Z87.820 Personal history of traumatic brain injury; Z91.010 Allergy to peanuts; Z86.14 Personal history of Methicillin resistant Staphylococcus aureus infection; Z91.81 History of falling; W10.9XXA Fall (on) (from) unspecified stairs and steps, initial encounter
CPT/HCPCS: 36415; 70450; 70553; 72156; 80048; 80053; 81003; 82607; 82746; 83605; 83735; 84100; 84443; 84484; 85025; 85610; 85730; 87635; 93005; 96361; 96374; 99285

== ENCOUNTER 2021-02-19 07:56 | Day surgery (SDC) | payer OTHER ==
[~2021-02-19 07:56] MED LIST: LACTATED RINGERS 1,000 ML IV SCH; LIDOCAINE 1% (10MG/ML) FOR IV START INTRADERMA PRN
[2021-02-19 08:47] VITALS: RESP 16; TEMP 97.6
[2021-02-19] MEDS ORDERED: PROPOFOL 10 MG/ML 20 ML VIAL IV ONE (09:17)
[2021-02-19] MEDS ORDERED: LIDOCAINE 1% INJ 10MG/ML (20 ML MDV) ONE (09:17)
--- NOTE | 2021-02-19 09:50 | P.PCN ---
Date of Procedure: 02/19/21 Description of Procedure: BRIEF HISTORY: Patient is a 50-year-old male presenting for outpatient colonoscopy for bleeding after bowel movement, hemorrhage of the anus and rectum. He does report prior colonoscopy. He denies any constipation or diarrhea. He reports colon cancer in his grandfather. PROCEDURE PERFORMED: Colonoscopy. PREOPERATIVE DIAGNOSIS: Hemorrhage of the anus and rectum, bleeding after bowel movement, he does report prior colonoscopy was unsure of the date. ESTIMATED BLOOD LOSS: Minimal. IV sedation per Anesthesia. PROCEDURE: After informed consent was obtained, the patient, was brought into the endoscopy unit. IV sedation was administered by Anesthesia under continuous monitoring. Digital rectal examination was normal. Initially the Olympus CF-190 flexible video colonoscope was then inserted in the rectum, gradually advanced into the cecum without any difficulty. Careful examination was performed as the scope was gradually being withdrawn. Ileocecal valve and the appendiceal orifice were visualized and appeared normal. Prep was fair with a moderate amount of semisolid stool throughout the colon prohibiting complete visualization of mucosa. Mucosa of the cecum, ascending colon, transverse colon, descending colon, sigmoid colon, and rectum appeared normal, however complete visualization of the mucosa prohibited by fair prep. A few scattered diverticula noted in the sigmoid colon. Retroflexion was performed in the rectum and no lesions were se en, low-grade internal hemorrhoids seen. The patient tolerated the procedure well. IMPRESSION: Fair prep. Mild sigmoid diverticulosis. Internal hemorrhoids. RECOMMENDATIONS: Findings of this examination were discussed with the patient.. Okay to resume diet. Okay to resume medications. Recommend repeat endoscopic evaluation in 3 years for inadequate prep/fair prep. Recommend local hemorrhoidal care with warm baths, stool softeners, decreasing toilet time and Tucks pads if further bleeding.
[2021-02-19 10:05] VITALS: BP 113/73; PULSE 73
== END 2021-02-19 10:36 | disposition home or self-care (01) ==
LOC: ORWHC2ENDO 07:56
PROVIDERS: ATTEND Internal Medicine
DX: K57.30 Diverticulosis of large intestine without perforation or abscess without bleeding (principal); K64.8 Other hemorrhoids; Z80.0 Family history of malignant neoplasm of digestive organs; F43.10 Post-traumatic stress disorder, unspecified; F20.9 Schizophrenia, unspecified; F31.9 Bipolar disorder, unspecified; F17.200 Nicotine dependence, unspecified, uncomplicated; Z91.010 Allergy to peanuts
CPT/HCPCS: 45378; J2001; J2704

== ENCOUNTER 2021-08-10 10:51 | Emergency (ER) | payer OTHER ==
[2021-08-10 10:55] VITALS: BP 126/87; PULSE 94; RESP 18; TEMP 97.6
[2021-08-10] MEDS ORDERED: SULFAMETHOX-TMP 800-160MG 1 EACH TAB PO STA (11:37)
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
== END 2021-08-10 12:15 | disposition home or self-care (01) ==
LOC: EC 10:51
DX: T33.5 Superficial frostbite of wrist, hand, and fingers (principal); F41.9 Anxiety disorder, unspecified; F31.9 Bipolar disorder, unspecified; F43.10 Post-traumatic stress disorder, unspecified; F90.9 Attention-deficit hyperactivity disorder, unspecified type; F20.9 Schizophrenia, unspecified; Z87.891 Personal history of nicotine dependence
CPT/HCPCS: 99283

== ENCOUNTER 2022-02-12 09:05 | Day surgery (SDC) | payer OTHER ==
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
[~2022-02-12 09:05] MED LIST changes: +HYDROmorphone 0.5 MG/0.5 ML SYRINGE IVP PRN; -LIDOCAINE 1% (10MG/ML) FOR IV START INTRADERMA PRN
[2022-02-12] MEDS ORDERED: LIDOCAINE 1% (10MG/ML) FOR IV START INTRADERMA ONE (09:50)
[2022-02-12] MEDS ORDERED: ONDANSETRON 4 MG/2 ML VIAL ONE (09:57)
[2022-02-12] MEDS ORDERED: PROPOFOL 10 MG/ML 20 ML VIAL IV ONE (10:00)
[2022-02-12] MEDS ORDERED: MIDAZOLAM 2 MG/2 ML VIAL ONE (10:00)
[2022-02-12] MEDS ORDERED: DEXAMETHASONE SOD PHOSPHATE 4 MG/ML 1 ML VIAL IV ONE (10:00)
[2022-02-12] MEDS ORDERED: LIDOCAINE 2% INJ 20 MG/ML (2 ML VIAL) ONE (10:00)
[2022-02-12] MEDS ORDERED: fentaNYL (PF) 50 MCG/ML 2 ML AMP ONE (10:00)
[2022-02-12] MEDS ORDERED: PHENYLEPHRINE-0.9% NACL SYG 1,000 MCG/10 ML SYRINGE ONE (10:00)
[2022-02-12] MEDS ORDERED: SODIUM CHLORIDE 0.9% 50 ML with ceFAZolin 1,000 MG IV ONE ×2 (10:05)
[2022-02-12] MEDS ORDERED: LACTATED RINGERS 1,000 ML IV ONE (10:05)
[2022-02-12 10:07] VITALS: TEMP 97.1
[2022-02-12 10:10] LABS: Glucose,Whole Blood 102 mg/dL (70-110)
[2022-02-12] MEDS ORDERED: LIDOCAINE 1% INJ 10MG/ML (20 ML MDV) SQ ONE (10:10)
[2022-02-12] MEDS ORDERED: BUPIVACAINE (PF) 0.5% 30 ML VIAL SQ ONE (10:10)
[2022-02-12 10:22] LABS: Basophils % (A) 1 %; Eosinophils # (A) 0.1 k/uL (0-0.7); Eosinophils % (A) 2 %; HCT 43.2 % (39.0-53.0); HGB 14.1 gm/dL (13.0-17.5); Lymphocytes # (A) 1.3 k/uL (1.0-4.8); Lymphocytes % (A) 22 %; MCH 29.8 pg (25.0-35.0); MCHC 32.7 g/dL (31.0-37.0); MCV 90.9 fL (80.0-100.0); Monocytes # (A) 0.4 k/uL (0-1.0); Monocytes % (A) 7 %; Neutrophils # (A) 3.9 k/uL (1.3-7.7); Neutrophils % (A) 67 %; Platelet Count 281 k/uL (150-450); RBC 4.75 m/uL (4.30-5.90); RDW 12.9 % (11.5-15.5); WBC 5.8 k/uL (3.8-10.6)
[2022-02-12 10:35] LABS: African American GFR (CKD) >90 (>60 ml/min/1.73 sqM); Anion Gap 6 mmol/L; Blood Urea Nitrogen 18 mg/dL (9-20); Calcium 9.2 mg/dL (8.4-10.2); Carbon Dioxide 26 mmol/L (22-30); Chloride 104 mmol/L (98-107); Glucose 95 mg/dL (74-99); Non-African American GFR(CKD) >90 (>60 ml/min/1.73 sqM); Potassium 4.4 mmol/L (3.5-5.1); Sodium 136 mmol/L (137-145)
[2022-02-12 11:11] VITALS: BP 104/64; PULSE 67; RESP 20
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
== END 2022-02-12 11:41 | disposition home or self-care (01) ==
LOC: OR 09:05
PROVIDERS: ATTEND Orthopaedic Surgery Hand Surgery
DX: I96 Gangrene, not elsewhere classified (principal); T34.5 Frostbite with tissue necrosis of wrist, hand, and finger(s); X31.XXXS Exposure to excessive natural cold, sequela; M19.041 Primary osteoarthritis, right hand; M20.091 Other deformity of right finger(s); Z86.14 Personal history of Methicillin resistant Staphylococcus aureus infection; G31.84 Mild cognitive impairment of uncertain or unknown etiology; F90.9 Attention-deficit hyperactivity disorder, unspecified type; F41.9 Anxiety disorder, unspecified; F31.9 Bipolar disorder, unspecified; F43.10 Post-traumatic stress disorder, unspecified; F20.9 Schizophrenia, unspecified; Z87.891 Personal history of nicotine dependence; Z79.899 Other long term (current) drug therapy; Z91.010 Allergy to peanuts
CPT/HCPCS: 80048; 85025; 26951; J2250; J1100; J2405; J0690; J2001 ×2; J3010; J2370; J2704

== ENCOUNTER 2023-08-20 06:45 | Emergency (ER) | payer OTHER ==
--- NOTE | 2023-08-20 07:41 | XR ---
EXAMINATION TYPE: XR chest 2V DATE OF EXAM: 08/20/2023 COMPARISON: 03/14/2019 HISTORY: Chest pain TECHNIQUE: Frontal and lateral views of the chest are obtained. FINDINGS: There is no focal air space opacity. No evidence for pneumothorax. No pleural effusion. The cardiac silhouette size is within normal limits. The osseous structures are grossly intact. IMPRESSION: 1. No acute cardiopulmonary process.
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
[2023-08-20 09:28] VITALS: BP 97/74; PULSE 69; RESP 22; TEMP 97.5
== END 2023-08-20 09:10 | disposition home or self-care (01) ==
LOC: EC 06:45
DX: J44.9 Chronic obstructive pulmonary disease, unspecified (principal); B97.4 Respiratory syncytial virus as the cause of diseases classified elsewhere; Z87.891 Personal history of nicotine dependence; Z86.59 Personal history of other mental and behavioral disorders; Z79.899 Other long term (current) drug therapy; Z91.018 Allergy to other foods; Z20.822 Contact with and (suspected) exposure to COVID-19
CPT/HCPCS: 71046; 87636; 99283

== ENCOUNTER 2024-03-08 16:49 | Observation (INO) | payer OTHER ==
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
[2024-03-08] MEDS: ZIPRASIDONE 20 MG VIAL IM STA (17:28)
[2024-03-08 20:45] LABS: Basophils % (A) 0 %; Eosinophils # (A) 0.1 k/uL (0-0.7); Eosinophils % (A) 1 %; HCT 41.1 % (39.0-53.0); HGB 13.6 gm/dL (13.0-17.5); Lymphocytes % (A) 16 %; MCH 29.7 pg (25.0-35.0); MCV 89.9 fL (80.0-100.0); Mean Platelet Volume 6.9; Monocytes # (A) 0.3 k/uL (0-1.0); Monocytes % (A) 5 %; Neutrophils # (A) 4.6 k/uL (1.3-7.7); Neutrophils % (A) 76 %; Platelet Count 281 k/uL (150-450); RBC 4.57 m/uL (4.30-5.90); RDW 12.6 % (11.5-15.5)
[2024-03-08 20:50] LABS: ALT 22 U/L (4-49); AST 33 U/L (17-59); African American GFR (CKD) >90 (>60 ml/min/1.73 sqM); Albumin 4.3 g/dL (3.5-5.0); Alcohol <10 mg/dL; Alkaline Phosphatase 77 U/L (38-126); Anion Gap 7 mmol/L; Blood Urea Nitrogen 16 mg/dL (9-20); Calcium 9.5 mg/dL (8.4-10.2); Carbon Dioxide 26 mmol/L (22-30); Chloride 108 mmol/L (98-107); Glucose 100 mg/dL (74-99); Non-African American GFR(CKD) >90 (>60 ml/min/1.73 sqM); Potassium 3.8 mmol/L (3.5-5.1); Sodium 141 mmol/L (137-145); Total Bilirubin 0.8 mg/dL (0.2-1.3); Total Protein 6.7 g/dL (6.3-8.2)
[2024-03-09] MEDS ORDERED: NALOXONE 0.4 MG/ML 1 ML VIAL IV PRN (05:28)
[2024-03-09] MEDS ORDERED: ONDANSETRON 4 MG/2 ML VIAL IVP PRN (14:05)
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
[2024-03-09] MEDS ORDERED: LORazepam 2 MG/ML INJ IM PRN (14:08)
[2024-03-09] MEDS ORDERED: LORazepam 1 MG TAB PO PRN (14:08)
[2024-03-09] MEDS ORDERED: haloperidoL 5 MG TAB PO PRN (14:08)
[2024-03-09] MEDS ORDERED: HALOPERIDOL LACTATE 5 MG/ML 1 ML VIAL IM PRN (14:08)
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
[2024-03-09] MEDS ORDERED: traZODone HCL 50 MG TAB PO PRN (14:09)
[2024-03-10] MEDS: PALIPERIDONE 3 MG TAB.ER.24 PO SCH (04:46)
--- NOTE | 2024-03-10 13:24 | P.PN ---
Progress Note - Text Progress Note Date: 03/10/24 Interval history: Patient was seen today for psychiatric follow-up. Patient remains in the ER w ith a one-to-one sitter. He was started on Invega p.o. yesterday by card writer hand however has been refusing medications. Patient continues to be fairly uncooperative with card writer hand, states that all he needed is "more sleep". He continues to speak negatively about medications, states that he does not need them. He did state that he was on a long-acting injection in the past. He was fairly concrete, continues to display very poor insight and judgment. Fairly irritable. States that he slept fairly last night has a fair appetite admits to homicidal ideations however no specific target, denies any suicidal thoughts. Denies any auditory or visual hallucinations. MENTAL STATUS EXAM: General Appearance: Patient appears to be agitated, uncooperative stated age is alert, demanding. Patient appears to have poor hygiene and grooming wearing hospital gown with fair eye contact. Behavior: [Patient is lying in bed, he is agitated. Uncooperative, irritable Speech: Patient's speech is fluent and nonpressured. Demanding. [place] Mood/Affect: Unable to assess Suicidality/Homicidality: Claims that he is "homicidal" towards others. Denies any suicidal thoughts Perceptions: Patient denies any visual hallucinations and denies any auditory hallucinations Though content/process: Intentional, illogical, concrete Memory and concentration: Unable to cooperate Judgment and insight: Poor/impulsive IMPRESSIONS: Psychosis unspecified History of methamphetamine use disorder PLAN: -At this time patient DOES meet criteria for inpatient psychiatric admission however due to patient being positive for COVID, patient will remain on medical floors and be followed by psychiatry for treatment -Would recommend the following medication changes/additions: Invega p.o. 3 mg twice daily for mood stabilization/psychosis, trazodone 50 mg nightly as needed for sleep. Patient is refusing p.o. medications -Continue 1:1 sitter for safety -Cannot leave AMA at this time. -Sheet Manager completed second certificate to go along with for certificate and petition, currently awaiting deferral and court date. -Communicated plan to patient's nurse -Will continue to follow along -Please contact with any questions.
[2024-03-10] MEDS ORDERED: ALBUTEROL HFA INHALER INHALATION PRN (14:48)
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
[2024-03-10] MEDS: CHOLECALCIFEROL 25 MCG (1000 IU) TABLET PO SCH (15:38)
[2024-03-10] MEDS: ENOXAPARIN 30 MG/0.3 ML SYRINGE SQ SCH (15:38)
[2024-03-10] MEDS: FAMOTIDINE 20 MG TAB PO SCH (15:38)
[2024-03-10] MEDS: NICOTINE 21MG/24HR PATCH TRANSDERM SCH (15:38)
[2024-03-10] MEDS: ASCORBIC ACID 500 MG TAB PO SCH (15:38)
[2024-03-10] MEDS: ZINC SULFATE 220 MG CAP PO SCH (15:38)
[2024-03-10 18:35] LABS: Amphetamine Screen,Urine Detected (NotDetected); Barbiturate Screen,Urine Not Detected (NotDetected); Benzodiazepines Screen,Urine Not Detected (NotDetected); Cocaine Screen,Urine Not Detected (NotDetected); Methadone Screen, Urine Not Detected (NotDetected); Opiate Screen,Urine Not Detected (NotDetected); Oxycodone Screen, Urine Not Detected (NotDetected); Phencyclidine Screen,Urine Not Detected (NotDetected); Tricyclic Antidepressant,Urine Not Detected (NotDetected); Urn Cannabinoid Scrn Detected (NotDetected)
[2024-03-11] MEDS: SYMBICORT 80-4.5 MCG INHALER INHALATION SCH (03:47)
[2024-03-11 11:24] VITALS: BMI 25.8
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
--- NOTE | 2024-03-11 14:14 | P.PN ---
Progress Note - Text Progress Note Date: 03/11/24 Interval history: Patient was seen today for psychiatric follow-up. Patient remains on a one-to- one sitter. Patient is now and starting to take Invega p.o. since yesterday. Nurse claims that patient has been fair so far, no significant complaints other than patient having difficulty with breathing. He was ordered inhalers by medicine. Patient appeared to be somewhat lethargic during the interview, he appeared to be less irritable today with display card writer. States that he is doing "a bit better". Denying any depression or anxiety at this time. He continues to have very poor insight and judgment, minimizing his drug use. Claims that he is not having any suicidal homicidal ideations intent or plan today. States that he was able to sleep fairly last night has a improving appetite. He was fairly concrete, continues to display very poor insight and judgment. Denies any auditory or visual hallucinations. He did claim that he feels a bit "sick" today however did not elaborate on what this meant. MENTAL STATUS EXAM: General Appearance: Patient appears to be agitated, uncooperative, improving mildly stated age is mildly lethargic today. Patient appears to have improving hygiene and grooming wearing hospital gown with poor eye contact. Behavior: [Patient is lying in bed, less uncooperative, less irritable Speech: Patient's speech is fluent and nonpressured. Demanding. [place], improving mildly Mood/Affect: Claims his mood is improving mildly, constricted affect Suicidality/Homicidality: Denies any homicidal ideations, denies any suicidal thoughts Perceptions: Patient denies any visual hallucinations and denies any auditory hallucinations Though content/process: Not endorsing any delusions, concrete Memory and concentration: Unable to cooperate Judgment and insight: Poor/impulsive, improving mildly IMPRESSIONS: Psychosis unspecified History of methamphetamine use disorder PLAN: -At this time patient DOES meet criteria for inpatient psychiatric admission however due to patient being positive for COVID, patient will remain on medical floors and be followed by psychiatry for treatment -Continue your management for underlying medical comorbidities including COVID infection -Would recommend the following medication changes/additions : Change Invega p.o. 3 mg to HS dosing for mood stabilization/psychosis, trazodone 50 mg nightly as needed for sleep. start cymbalta 30 mg daily for mood/anxiety -Continue 1:1 sitter for safety -Cannot leave AMA at this time. -Disabilities Services Officer completed second certificate to go along with for certificate and petition, currently awaiting deferral and court date. -Communicated plan to patient's nurse -Will continue to follow along -Please contact with any questions.
[2024-03-11] MEDS: ALBUTEROL HFA INHALER INHALATION SCH (15:48)
[2024-03-11] MEDS: ACETAMINOPHEN TAB 325 MG TAB PO PRN (22:20)
[2024-03-11] MEDS: PALIPERIDONE 3 MG TAB.ER.24 PO SCH (22:21)
[2024-03-12] MEDS: DULoxetine HCL 30 MG CAPSULE.DR PO SCH (10:45)
--- NOTE | 2024-03-13 20:01 | P.PN ---
Progress Note - Text Progress Note Date: 03/13/24 Interval History: Was seen at the bedside today he was resting but woke easily to verbal greeting. He continues to describe his mood as "depressed" but does feel safer now that he is here in the hospital. He denies suicidal ideation, intent, or plan. He also denies homicidal ideation, intent, or plan. He does note that his auditory hallucinations have improved. They are still present but less intense and less distressing. He has been consistently taking the paliperidone 3 mg at night. He denies experiencing any visual hallucinations. Thus an increase in the paliperidone to 6 mg at night which she was amenable to. In regards to his physical health, he generally feels tired but is otherwise okay. He has not had significant challenges related to the COVID-19 infection. Mental Status Exam: General Appearance: Patient appears to be stated age is alert, directable, and cooperative. Behavior: Patient is calmly lying down without any agitated behavior. Speech: Patient's speech is fluent and nonpressured. Mood/Affect: Mood is depressed, affect is congruent and constricted. Suicidality/Homicidality: Patient denies having any suicidal or homicidal ideation intent or plan. Perceptions: Patient denies any visual hallucinations and does endorse having auditory hallucinations Though content/process: There is no evidence of any delusional thought content and thought process is linear and goal-directed. Memory and concentration: AOX3, grossly intact for the purposes of this session Judgment and insight: Improving mildly IMPRESSIONS: Psychosis unspecified History of methamphetamine use disorder PLAN: -At this time patient DOES meet criteria for inpatient psychiatric admission however due to patient being positive for COVID, patient will remain on medical floors and be followed by psychiatry for treatment -Continue management for underlying medical comorbidities including COVID infection -Would recommend the following medication changes/additions : Increase Invega PO to 6 mg HS dosing for mood stabilization/psychosis, trazodone 50 mg nightly as needed for sleep. Continue Cymbalta 30 mg daily for mood/anxiety. -Continue 1:1 sitter for safety -Cannot leave AMA at this time. -Colleague completed second certificate to go along with for certificate and petition, currently awaiting deferral and court date. -Will continue to follow along. -Please contact with any questions.
[2024-03-13] MEDS: PALIPERIDONE 6 MG TAB.ER.24 PO SCH (21:58)
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
[2024-03-14 12:55] LABS: Basophils # (A) 0.02 X 10*3/uL (0.00-0.10); Basophils % (A) 0.4 %; Eosinophils # (A) 0.15 X 10*3/uL (0.04-0.35); Eosinophils % (A) 2.9 %; HCT 39.5 % (39.6-50.0); HGB 12.8 g/dL (13.0-17.0); Lymphocytes # (A) 1.53 X 10*3/uL (0.90-5.00); Lymphocytes % (A) 29.3 %; MCH 29.4 pg (27.0-32.0); MCHC 32.4 g/dL (32.0-37.0); MCV 90.8 FL (80.0-97.0); Mean Platelet Volume 9.7 FL (9.5-12.2); Monocytes # (A) 0.38 X 10*3/uL (0.20-1.00); Monocytes % (A) 7.3 %; NRBC Per 100 WBC 0 X 10*3/uL (0.00-0.01); Neutrophils # (A) 3.12 X 10*3/uL (1.80-7.70); Neutrophils % (A) 59.7 %; Platelet Count 248 X 10*3/uL (140-440); RBC 4.35 X 10*6/uL (4.40-5.60); RDW 12.8 % (11.5-14.5); WBC 5.22 X 10*3/uL (4.50-10.00)
[2024-03-14 13:16] LABS: BUN/Creat Ratio 20.71 Ratio (12.00-20.00); Blood Urea Nitrogen 14.5 mg/dL (9.0-27.0); Calcium 8.6 mg/dL (8.7-10.3); Carbon Dioxide 22.3 mmol/L (21.6-31.8); Chloride 103 mmol/L (96-109); Glucose 89 mg/dL (70-110); Potassium 4.8 mmol/L (3.5-5.5); Sodium 138 mmol/L (135-145)
[2024-03-14] MEDS ORDERED: diphenhydrAMINE 25 MG CAP PO PRN (13:54)
--- NOTE | 2024-03-14 13:59 | P.PN ---
Progress Note - Text Progress Note Date: 03/14/24 Interval history: Patient was seen today for psychiatric follow-up. Patient remains on a one-to- one sitter. Patient has been taking his medications Cymbalta and Invega. He appears to be mildly more cooperative today with loan underwriter, continues to have somewhat superficial insight and judgment. Claims that his mood and anxiety been mildly improving, he is denying any other issues with the medications. States that he slept fairly poor last night, was requesting Ativan and other controlled medications for sleep however was agreeable to try Benadryl for tonight. Claims that he is not having any suicidal homicidal ideations intent or plan today. has a improving appetite. He was fairly concrete. Denies any auditory or visual hallucinations. MENTAL STATUS EXAM: General Appearance: Patient appears to be mildly more cooperative, improving mildly stated age is less lethargic today. Patient appears to have improving hygiene and grooming wearing hospital gown with improving eye contact. Behavior: Patient is lying in bed, more cooperative, less irritable Speech: Patient's speech is fluent and nonpressured. Demanding. [place], improving mildly Mood/Affect: Claims his mood is improving mildly, constricted affect Suicidality/Homicidality: Denies any homicidal ideations, denies any suicidal thoughts Perceptions: Patient denies any visual hallucinations and denies any auditory hallucinations Though content/process: Not endorsing any delusions, concrete Memory and concentration: Alert and oriented x 3 Judgment and insight: Poor/impulsive, improving mildly IMPRESSIONS: Psychosis unspecified History of methamphetamine use disorder PLAN: -At this time patient DOES meet criteria for inpatient psychiatric admission however due to patient being positive for COVID, patient will remain on medical floors and be followed by psychiatry for treatment -Continue your management for underlying medical comorbidities including COVID infection -Would recommend the following medication changes/additions : Continue Invega p.o. 6 mg HS for mood stabilization/psychosis, trazodone 50 mg nightly as needed for sleep. Increase cymbalta 60 mg daily for mood/anxiety -Continue 1:1 sitter for safety -Cannot leave AMA at this time. -Building Coordinator completed second certificate to go along with for certificate and petition, currently awaiting deferral with the court appointed traffic law attorney and court date. -Communicated plan to patient's nurse -Will continue to follow along -Please contact with any questions.
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
[2024-03-15] MEDS: DULoxetine HCL 60 MG CAPSULE.DR PO SCH (11:54)
[2024-03-15] MEDS: ENOXAPARIN 40 MG/0.4 ML SYRINGE SQ SCH (11:55)
--- NOTE | 2024-03-15 14:20 | P.PN ---
Progress Note - Text Progress Note Date: 03/15/24 Interval history: Patient was seen today for psychiatric follow-up. Patient remains on a one-to- one sitter. Patient has been taking his medications Cymbalta and Invega. Patient claims that he is doing a bit better today overall, denying any depression claims that his anxiety is minimal. States that he slept fairly last night has been eating his food. No complaints or side effects from the medications at this time. Claims that he is not having any suicidal homicidal ideations intent or plan today. has a improving appetite. He was fairly concrete. Denies any auditory or visual hallucinations. MENTAL STATUS EXAM: General Appearance: Patient appears to be mildly more cooperative, improving mildly stated age is less lethargic today. Patient appears to have improving hygiene and grooming wearing hospital gown with improving eye contact. Behavior: Patient is lying in bed, more cooperative, less irritable today Speech: Patient's speech is fluent and nonpressured. [place], improving mildly Mood/Affect: Claims his mood is improving mildly, constricted affect Suicidality/Homicidality: Denies any homicidal ideations, denies any suicidal thoughts Perceptions: Patient denies any visual hallucinations and denies any auditory hallucinations Though content/process: Not endorsing any delusions, concrete Memory and concentration: Alert and oriented x 3 Judgment and insight: Chronically poor, improving mildly IMPRESSIONS: Psychosis unspecified History of methamphetamine use disorder PLAN: -Continue your management for underlying medical comorbidities including COVID infection -Would recommend the following medication changes/additions : Continue Invega p.o. 6 mg HS for mood stabilization/psychosis, trazodone 50 mg nightly as needed for sleep. cymbalta 60 mg daily for mood/anxiety -Continue 1:1 sitter for safety until patient is discharged -Cannot leave AMA at this time. -Patient is awaiting collections attorney today to do the deferral. If patient defers today then he can be discharged. -Patient is currently refusing inpatient substance rehab however, please give resources and referral if needed today. Patient can also get homeless [facility] referral if needed -Communicated plan to patient's nurse -Psychiatry will sign off once patient defers with his collections attorney and he will be cleared psychiatrically for discharge today. -Please contact with any questions.
--- NOTE | 2024-03-15 23:28 | P.PN ---
Subjective Progress Note Date: 03/15/24 HISTORY OF PRESENT ILLNESS: 53-year-old With active medical history of substance abuse and nicotine dependency had a closed head injury with memory impairment, history of esophageal mass, bipolar disorders with PTSD, history of chronic pain management with cervical spine third fourth herniated disc and spinal narrowing who also had recent history of acute COVID 19 admitted to the hospital on March 09, 2024, under the influence of methamphetamine brought by EMS for psychiatric symptoms still having significant neck pain apparently had a petition for psych evaluation not clear whether patient is suicidal at this point or what. Patient also was diagnosed with COVID-19 with temperature of 99.9 been treated since March 11. Psych has been seen patient and apparently waiting to take him to the psych unit as soon as he is cleared medically. 03/15/2024: Patient is more calm and relaxed today was more pleasant and answers question appropriately, still having mild Symptoms with shortness of breath congestion and mild dyspnea from COVID-19 but looking at his blood panel and testing along with vitals he is doing well oxygen saturation still running at 94 percentile require sometimes 2 L of O2 still on updraft treatment. He is still seeing psych on daily basis which continue to modify his comorbidity till his quarantine is off total of 10 days but when going back to check on psych not today apparently patient has been refusing to go to substance rehab and refusing inpatient psychiatry decided to sign off once patient defers with his photographic process screen maker and he will be clear psychiatrically for discharge. Such a matter be taken with the socially responsible investment adviser and if that is the case patient will be stabilized medically over the next day or 2 and can still be planned to be discharged. REVIEW OF SYSTEMS: CONSTITUTIONAL: Well-developed no acute respiratory distress. EYES: No icterus sclerae, no conjunctivitis. EARS, NOSE, MOUTH, THROAT, and FACE: No sore throat, lymphadenopathy, carotid bruits or deformity. RESPIRATORY: Mild shortness of breath slight cough no wheezes. CARDIOVASCULAR: No CP, Palpitation, PND, Orthopnea, or angina. GASTROINTESTINAL: No Abd pain, Nausea or vomiting, no Diarrhea or constipation, No GI Bleed, no distention or masses. GENITOURINARY: Negative for Hematuria or UTI, no kidney stones. INTEGUMENT/BREAST: Negative for any muscular injury with mild osteoarthritis.. HEMATOLOGIC/LYMPHATIC: Negative for bleed or purpura. MUSCULOSKELTAL: Negative for Myalgia or arthralgia. NEURLOGICAL: No LOC, Sz or syncope, blurred vision dizziness or abnormality.. BEHAVIORAL/PSYCH: Is more pleasant today able to answer question properly not angry not having any foul language or swearing words. ENDOCRINE: Negative. PHYSICAL EXAMINATION: General Appearance: Alert, cooperative, no distress, appears stated age. Neck HEENT: Supple, no lymphadenopathy, no thyroid enlargement, no carotid bruits. Lungs: Decreased breath sound bilaterally with fine rhonchi no crackles or wheezes. Chest Wall: Chest wall normal expansion with deep inspiration no tenderness and no deformity was found on exam, no costochondral pain or discomfort. Heart: Regular rate and rhythm, S1, S2 normal, no murmur, rub or gallop. Back: Symmetric, no curvature, ROM normal, no CVA tenderness. Abdomen: Soft, non-tender, bowel sounds active all four quadrants, no masses, no organomegaly. Extremities: Extremities normal, atraumatic, no cyanosis or edema. Pulses: 2+ and symmetric. Skin: Skin color, texture, tugor normal, no rashes or lesions. Neurologic: Alert oriented x3 cranial nerves II through XII intact, no motor deficit, no abnormal balance or gait. ASSESSMENT AND PLAN: _Acute psychosis secondary to methamphetamine use. Still seen psych and has been little bit more clear. More stable medically. _Suicidal ideation: Still have a sitter and seen psych on more regular basis. Still been evaluated by psych and apparently the patient is in order patient might be working with his photographic process screen maker to have more clearance for his right and what he wants to do specially with refusal of inpatient rehab and substance abuse rehab. _Acute COVID-19 infection patient still having slight shortness of breath continue O2 and supportive care. He is remain on Symbicort, along with Ventolin HFA inhaler no antiviral medication was used still on Lovenox as well. _C3-C4 disc herniation and spinal cord narrowing need further attention with seen neurosurgery or back specialist. _Polysubstance abuse with methamphetamine amphetamine and THC all per drug toxicology apparently has refused to go to substance abuse rehab and counseling. _Bipolar disorders and PTSD remain on Cymbalta along with Haldol Ativan and Invega. _Esophageal mass: Will require further testing including an EGD if he would agree to it after is a clear with COVID-19. _History of close head trauma: no seizure activity at this point has been doing better. As soon as patient is stable need to be transfer to psych unit apparently they are waiting for 10 days quarantine. From the time COVID-19 was found. Objective - Vital Signs Vital signs: Vital Signs Temp 97.8 F 03/15/24 00:22 Pulse 66 03/15/24 00:22 Resp 17 03/15/24 00:22 BP 91/50 03/15/24 00:22 Pulse Ox 97 03/15/24 00:22 FiO2 Intake & Output 03/14/24 03/14/24 03/15/24 06:59 18:59 06:59 Intake Total 200 Balance 200 Intake: Oral 200 Other: Voiding Method Toilet Toilet Toilet Urinal Urinal # Voids 1 4 3 # Bowel Movements 1 - Labs CBC & Chem 7: 03/14/24 05:34 03/14/24 05:34 Labs: Abnormal Lab Results - Last 24 Hours (Table) 03/14/24 03/14/24 Range/Units 05:34 05:34 RBC 4.35 L (4.40-5.60) X 10*6/uL Hgb 12.8 L (13.0-17.0) g/dL Hct 39.5 L (39.6-50.0) % Anion Gap 12.70 H (4.00-12.00) mmol/L BUN/Creatinine Ratio 20.71 H (12.00-20.00) Ratio Calcium 8.6 L (8.7-10.3) mg/dL
--- NOTE | 2024-03-17 06:39 | P.PN ---
Subjective Progress Note Date: 03/16/24 HISTORY OF PRESENT ILLNESS: 53-year-old With active medical history of substance abuse and nicotine dependency had a closed head injury with memory impairment, history of esophageal mass, bipolar disorders with PTSD, history of chronic pain management with cervical spine third fourth herniated disc and spinal narrowing who also had recent history of acute COVID 19 admitted to the hospital on March 09, 2024, under the influence of methamphetamine brought by EMS for psychiatric symptoms still having significant neck pain apparently had a petition for psych evaluation not clear whether patient is suicidal at this point or what. Patient also was diagnosed with COVID-19 with temperature of 99.9 been treated since March 11. Psych has been seen patient and apparently waiting to take him to the psych unit as soon as he is cleared medically. 03/15/2024: Patient is more calm and relaxed today was more pleasant and answers question appropriately, still having mild Symptoms with shortness of breath congestion and mild dyspnea from COVID-19 but looking at his blood panel and testing along with vitals he is doing well oxygen saturation still running at 94 percentile require sometimes 2 L of O2 still on updraft treatment. He is still seeing psych on daily basis which continue to modify his comorbidity till his quarantine is off total of 10 days but when going back to check on psych not today apparently patient has been refusing to go to substance rehab and refusing inpatient psychiatry decided to sign off once patient defers with his junior accounting clerk and he will be clear psychiatrically for discharge. Such a matter be taken with the mental health social worker and if that is the case patient will be stabilized medically over the next day or 2 and can still be planned to be discharged. 03/16/2024: My surprise looking into psych progress note from yesterday it looks like discussion with the patient went nowhere that despite he cannot leave AMA patient is awaiting junior accounting clerk to do bed referral if patient defers can be discharged does not look like his interest of going for inpatient substance rehab however inpatient psych rehab and even he might end up in homeless custodial called referral might be needed. Meanwhile he is still symptomatic for COVID-19 so the decision is really between today and tomorrow for possible discharge if he is done with his junior accounting clerk and the petition is complete. Awaiting for final decision with the mental health social worker to make a plan. REVIEW OF SYSTEMS: CONSTITUTIONAL: Well-developed no acute respiratory distress. EYES: No icterus sclerae, no conjunctivitis. EARS, NOSE, MOUTH, THROAT, and FACE: No sore throat, lymphadenopathy, carotid bruits or deformity. RESPIRATORY: Mild shortness of breath slight cough no wheezes. CARDIOVASCULAR: No CP, Palpitation, PND, Orthopnea, or angina. GASTROINTESTINAL: No Abd pain, Nausea or vomiting, no Diarrhea or constipation, No GI Bleed, no distention or masses. GENITOURINARY: Negative for Hematuria or UTI, no kidney stones. INTEGUMENT/BREAST: Negative for any muscular injury with mild osteoarthritis.. HEMATOLOGIC/LYMPHATIC: Negative for bleed or purpura. MUSCULOSKELTAL: Negative for Myalgia or arthralgia. NEURLOGICAL: No LOC, Sz or syncope, blurred vision dizziness or abnormality.. BEHAVIORAL/PSYCH: Is more pleasant today able to answer question properly not angry not having any foul language or swearing words. ENDOCRINE: Negative. PHYSICAL EXAMINATION: General Appearance: Alert, cooperative, no distress, appears stated age. Neck HEENT: Supple, no lymphadenopathy, no thyroid enlargement, no carotid bruits. Lungs: Decreased breath sound bilaterally with fine rhonchi no crackles or wheezes. Chest Wall: Chest wall normal expansion with deep inspiration no tenderness and no deformity was found on exam, no costochondral pain or discomfort. Heart: Regular rate and rhythm, S1, S2 normal, no murmur, rub or gallop. Back: Symmetric, no curvature, ROM normal, no CVA tenderness. Abdomen: Soft, non-tender, bowel sounds active all four quadrants, no masses, no organomegaly. Extremities: Extremities normal, atraumatic, no cyanosis or edema. Pulses: 2+ and symmetric. Skin: Skin color, texture, tugor normal, no rashes or lesions. Neurologic: Alert oriented x3 cranial nerves II through XII intact, no motor deficit, no abnormal balance or gait. ASSESSMENT AND PLAN: _Acute psychosis secondary to methamphetamine use. Still seen psych and has been little bit more clear. More stable medically. _Suicidal ideation: Still have a sitter and seen psych on more regular basis. Still been evaluated by psych and apparently the patient is in order patient [facility] be working with his junior accounting clerk to have more clearance for his right and what he wants to do specially with refusal of inpatient rehab and substance abuse rehab. _Acute COVID-19 infection patient still having slight shortness of breath continue O2 and supportive care. He is remain on Symbicort, along with Ventolin HFA inhaler no antiviral medication was used still on Lovenox as well. _C3-C4 disc herniation and spinal cord narrowing need further attention with seen neurosurgery or back specialist. _Polysubstance abuse with methamphetamine amphetamine and THC all per drug toxicology apparently has refused to go to substance abuse rehab and counseling. _Bipolar disorders and PTSD remain on Cymbalta along with Haldol Ativan and Invega. _Esophageal mass: Will require further testing including an EGD if he would agree to it after is a clear with COVID-19. _History of close head trauma: no seizure activity at this point has been doing better. Discharge planning: Does not look like patient is willing to go for inpatient rehab or substance abuse rehab he is waiting to finalize his plan with his junior accounting clerk to the petition and if all goes through patient might end up leaving the hospital in the next 24 hours. Objective - Vital Signs Vital signs: Vital Signs Temp 97.9 F 03/16/24 02:00 Pulse 74 03/16/24 02:00 Resp 16 03/16/24 02:00 BP 94/71 03/16/24 02:00 Pulse Ox 97 03/16/24 02:00 FiO2 Intake & Output 03/15/24 03/15/24 03/16/24 06:59 18:59 06:59 Other: Voiding Method Toilet Toilet Toilet # Voids 3 3 4 - Labs CBC & Chem 7: 03/14/24 05:34 03/14/24 05:34
[2024-03-17 08:24] VITALS: RESP 16
--- NOTE | 2024-03-17 12:51 | P.PN ---
Progress Note - Text Progress Note Date: 03/17/24 Interval history: Patient was seen today for psychiatric follow-up. Patient remains on a one-to- one sitter. Patient has been taking his medications Cymbalta and Invega. Patient claims that he is improving today, states that he feels his medications have been helping with his anxiety and also his mood. Denied any overnight complaints. Much more cooperative and directable during conversation. Goal oriented, organized thoughts. Claims that he does not want to go to rehab, states that he also does not want the long-acting injection. He claims that he met with the deputy commonwealth's attorney and signed the deferral today, agreeable to continue on with outpatient treatment. States that he slept fairly last night has been eating his food. No complaints or side effects from the medications at this time. Claims that he is not having any suicidal homicidal ideations intent or plan today. has a improving appetite. He was fairly concrete. Denies any auditory or visual hallucinations. MENTAL STATUS EXAM: General Appearance: Patient appears to be mildly more cooperative, improving mildly stated age is less lethargic today. Patient appears to have improving hygiene and grooming wearing hospital gown with improving eye contact. Behavior: Patient is lying in bed, more cooperative Speech: Patient's speech is fluent and nonpressured. Parker, improving mildly Mood/Affect: Claims his mood is improving mildly, constricted affect, improving Suicidality/Homicidality: Denies any homicidal ideations, denies any suicidal thoughts Perceptions: Patient denies any visual hallucinations and denies any auditory hallucinations Though content/process: Not endorsing any delusions, concrete, more future or iented today Memory and concentration: Alert and oriented x 3 Judgment and insight: Chronically poor, improving mildly IMPRESSIONS: Psychosis unspecified History of methamphetamine use disorder PLAN: -Continue your management for underlying medical comorbidities including COVID infection -Would recommend the following medication changes/additions : Continue Invega p.o. 6 mg HS for mood stabilization/psychosis, trazodone 50 mg nightly as needed for sleep. cymbalta 60 mg daily for mood/anxiety. patient can have a 2 week supply of these medications on discharge -Patient signed deferral with his deputy commonwealth's attorney. Please ensure that patient has a psychiatric follow-up appointment with [facility] prior to discharge. -Patient is currently refusing inpatient substance rehab however, please give resources and referral if needed today. Patient can also get homeless [facility] referral if needed -Communicated plan to patient's nurse -Psychiatry will sign off at this time. -Please contact with any questions.
[2024-03-17 14:56] VITALS: BP 99/66; PULSE 78; TEMP 98.2
--- NOTE | 2024-03-17 23:27 | P.DS ---
Providers Date of admission: 03/09/24 05:28 Attending physician: Shane Wellington Consults: 03/09/24 05:28 Consult Physician Routine Consulting Provider: Lauri Martinez Consult Reason/Comments: psych Do you want consulting provider notified?: Yes Primary care physician: Kiya Underwood [facility] Course: HISTORY OF PRESENT ILLNESS: 53-year-old With active medical history of substance abuse and nicotine dependency had a closed head injury with memory impairment, history of esophageal mass, bipolar disorders with PTSD, history of chronic pain management with cervical spine third fourth herniated disc and spinal narrowing who also had recent history of acute COVID 19 admitted to the hospital on March 09, 2024, under the influence of methamphetamine brought by EMS for psychiatric symptoms still having significant neck pain apparently had a petition for psych evaluation not clear whether patient is suicidal at this point or what. Patient also was diagnosed with COVID-19 with temperature of 99.9 been treated since March 11. Psych has been seen patient and apparently waiting to take him to the psych unit as soon as he is cleared medically. 03/15/2024: Patient is more calm and relaxed today was more pleasant and answers question appropriately, still having mild Symptoms with shortness of breath congestion and mild dyspnea from COVID-19 but looking at his blood panel and testing along with vitals he is doing well oxygen saturation still running at 94 percentile require sometimes 2 L of O2 still on updraft treatment. He is still seeing psych on daily basis which continue to modify his comorbidity till his quarantine is off total of 10 days but when going back to check on psych not today apparently patient has been refusing to go to substance rehab and refusing inpatient psychiatry decided to sign off once patient defers with his corporate associate attorney and he will be clear psychiatrically for discharge. Such a matter be taken with the psychosocial rehabilitation counselor and if that is the case patient will be stabilized medically over the next day or 2 and can still be planned to be discharged. 03/16/2024: My surprise looking into psych progress note from yesterday it looks like discussion with the patient went nowhere that despite he cannot leave AMA patient is awaiting corporate associate attorney to do bed referral if patient defers can be discharged does not look like his interest of going for inpatient substance rehab however inpatient psych rehab and even he might end up in homeless alf called referral might be needed. Meanwhile he is still symptomatic for COVID-19 so the decision is really between today and tomorrow for possible discharge if he is done with his corporate associate attorney and the petition is complete. Awaiting for final decision with the psychosocial rehabilitation counselor to make a plan. 03/17/2024: Patient is doing very well today he is not symptomatic with COVID-19 infection, no fever chills cough or shortness of breath. The patient was seen and Cleared by psych today for recommending following medication change and additions as to continue Invega 6 mg at bedtime for mood stabilizer and psychosis, trazodone 50 mg at night to help with sleep, Cymbalta 60 mg for mood and anxiety and patient to have 2-week supply of this medication on discharge. Apparently patient signed deferred with his corporate associate attorney and was unsure that he has a psychiatry follow-up appointment with [facility]. Discharge. The patient and his hospitalization had refused to go to inpatient substance rehab was giving all the resources for referral and also to homeless alf referral if needed. Patient is doing very well COVID-19 salazar the symptomatic he is agreeable to be discharged today and he wants to go home. REVIEW OF SYSTEMS: CONSTITUTIONAL: Well-developed no acute respiratory distress. EYES: No icterus sclerae, no conjunctivitis. EARS, NOSE, MOUTH, THROAT, and FACE: No sore throat, lymphadenopathy, carotid bruits or deformity. RESPIRATORY: Mild shortness of breath slight cough no wheezes. CARDIOVASCULAR: No CP, Palpitation, PND, Orthopnea, or angina. GASTROINTESTINAL: No Abd pain, Nausea or vomiting, no Diarrhea or constipation, No GI Bleed, no distention or masses. GENITOURINARY: Negative for Hematuria or UTI, no kidney stones. INTEGUMENT/BREAST: Negative for any muscular injury with mild osteoarthritis.. HEMATOLOGIC/LYMPHATIC: Negative for bleed or purpura. MUSCULOSKELTAL: Negative for Myalgia or arthralgia. NEURLOGICAL: No LOC, Sz or syncope, blurred vision dizziness or abnormality.. BEHAVIORAL/PSYCH: Is more pleasant today able to answer question properly not angry not having any foul language or swearing words. ENDOCRINE: Negative. PHYSICAL EXAMINATION: General Appearance: Alert, cooperative, no distress, appears stated age. Neck HEENT: Supple, no lymphadenopathy, no thyroid enlargement, no carotid bruits. Lungs: Decreased breath sound bilaterally with fine rhonchi no crackles or wheezes. Chest Wall: Chest wall normal expansion with deep inspiration no tenderness and no deformity was found on exam, no costochondral pain or discomfort. Heart: Regular rate and rhythm, S1, S2 normal, no murmur, rub or gallop. Back: Symmetric, no curvature, ROM normal, no CVA tenderness. Abdomen: Soft, non-tender, bowel sounds active all four quadrants, no masses, no organomegaly. Extremities: Extremities normal, atraumatic, no cyanosis or edema. Pulses: 2+ and symmetric. Skin: Skin color, texture, tugor normal, no rashes or lesions. Neurologic: Alert oriented x3 cranial nerves II through XII intact, no motor deficit, no abnormal balance or gait. ASSESSMENT AND PLAN: _Acute psychosis secondary to methamphetamine use. Still seen psych and has been little bit more clear. More stable medically. _Suicidal ideation: Still have a sitter and seen psych on more regular basis. Still been evaluated by psych and apparently the patient is in order patient might be working with his corporate associate attorney to have more clearance for his right and what he wants to do specially with refusal of inpatient rehab and substance abuse rehab. _Acute COVID-19 infection patient still having slight shortness of breath continue O2 and supportive care. He is remain on Symbicort, along with Ventolin HFA inhaler no antiviral medication was used still on Lovenox as well. _C3-C4 disc herniation and spinal cord narrowing need further attention with seen neurosurgery or back specialist. _Polysubstance abuse with methamphetamine amphetamine and THC all per drug toxicology apparently has refused to go to substance abuse rehab and counseling. _Bipolar disorders and PTSD remain on Cymbalta along with Haldol Ativan and Invega. _Esophageal mass: Will require further testing including an EGD if he would agree to it after is a clear with COVID-19. _History of close head trauma: no seizure activity at this point has been doing better. Discharge planning: Is very stable today is less symptomatic with COVID-19 suicidal ideation and negative today and apparently doing very well with psych meds. Will be discharged today with recommendation done by psych and by legal librarian and psychosocial rehabilitation counselor in the hospital. Hospital course: 53-year-old with active medical history of substance abuse nicotine dependency and close head trauma with memory impairment and history of esophageal mass not have history of bipolar disorders with PTSD and history of chronic pain management with cervical spine third and fourth herniated disc and spinal narrowing with significant spinal stenosis who was seen at the emergency department on March 09, 2024 under the influence of methamphetamine was having significant neck pain and lower back pain from the same time to have acute COVID-19 infection. Patient also had B? For suicidal ideation at the time temperature was 99.9 on admission he could not go to the psychiatrist admitted to [facility] to treat COVID-19 initially and prepare for having him going to the psych unit afterward. The following few days patient had long talk with the psychiatrist repeatedly had refused to go for substance rehab and inpatient psych. Patient had a petition to the court and signed deferred with his corporate associate attorney to ensure follow-up appointment with psych with [facility] also did take his medication faithfully. On 03/17/2024: Patient is not symptomatic with shortness of breath cough and wheezes is psych acute psychosis is much better so far patient was cleared to be discharged to follow-up as an outpatient by [facility] by his primary care physician. Time spent on patient discharge was over 32 minutes. Patient Condition at Discharge: Fair Plan - Discharge Summary New Discharge Prescriptions: New Nicotine 21Mg/24Hr Patch [Habitrol] 1 patch TRANSDERM DAILY #30 patch haloperidoL [Haldol] 5 mg PO Q6HR PRN #30 tab PRN Reason: Agitation Paliperidone [Invega] 6 mg PO HS #30 tab Zinc Sulfate [Orazinc] 220 mg PO DAILY cap Acetaminophen Tab [Tylenol] 650 mg PO Q6HR PRN #30 tab PRN Reason: Fever And/ Or Pain Albuterol Inhaler [Ventolin Hfa Inhaler] 1 puff INHALATION RT-QID #1 each Ascorbic Acid [Vitamin C] 500 mg PO DAILY tab Cholecalciferol [Vitamin D3 (25 Mcg = 1000 Iu)] 50 mcg PO DAILY tab diphenhydrAMINE [Benadryl] 50 mg PO HS PRN #30 cap PRN Reason: Insomnia Famotidine [Pepcid] 20 mg PO DAILY #30 tab Discharge Medication List Acetaminophen Tab [Tylenol] 650 mg PO Q6HR PRN #30 tab 03/17/24 [Rx] Albuterol Inhaler [Ventolin Hfa Inhaler] 1 puff INHALATION RT-QID #1 each 03/17/24 [Rx] Ascorbic Acid [Vitamin C] 500 mg PO DAILY tab 03/17/24 [Rx] Cholecalciferol [Vitamin D3 (25 Mcg = 1000 Iu)] 50 mcg PO DAILY tab 03/17/24 [Rx] Famotidine [Pepcid] 20 mg PO DAILY #30 tab 03/17/24 [Rx] Nicotine 21Mg/24Hr Patch [Habitrol] 1 patch TRANSDERM DAILY #30 patch 03/17/24 [Rx] Paliperidone [Invega] 6 mg PO HS #30 tab 03/17/24 [Rx] Zinc Sulfate [Orazinc] 220 mg PO DAILY cap 03/17/24 [Rx] diphenhydrAMINE [Benadryl] 50 mg PO HS PRN #30 cap 03/17/24 [Rx] haloperidoL [Haldol] 5 mg PO Q6HR PRN #30 tab 03/17/24 [Rx] Follow up Appointment(s)/Referral(s): Kiya Underwood MD [Primary Care Provider] - 1-2 days Lauri Martinez MD [Medical Doctor] - 1 Week Discharge/Stand Alone Forms: AA Meetings [place], [facility], [facility], Outpatient Counseling, Inp Substance Abuse Facilities Discharge Disposition: HOME SELF-CARE
== END 2024-03-17 16:32 | disposition home or self-care (01) ==
LOC: EC 16:49 → EEVIPCON 03-09 05:28 → 6NMEDSUR 03-09 05:28 → 4SSUR 03-10 04:45
PROVIDERS: ADMIT Internal Medicine Geriatric Medicine; ATTEND Internal Medicine Geriatric Medicine
DX: F23 Brief psychotic disorder (principal); R45.851 Suicidal ideations; U07.1 COVID-19; F12.90 Cannabis use, unspecified, uncomplicated; F15.90 Other stimulant use, unspecified, uncomplicated; F41.9 Anxiety disorder, unspecified; F31.9 Bipolar disorder, unspecified; F90.9 Attention-deficit hyperactivity disorder, unspecified type; F43.10 Post-traumatic stress disorder, unspecified; M50.21 Other cervical disc displacement, high cervical region; K22.89 Other specified disease of esophagus; F17.210 Nicotine dependence, cigarettes, uncomplicated; Z59.00 Homelessness unspecified; Z87.820 Personal history of traumatic brain injury; Z89.011 Acquired absence of right thumb
CPT/HCPCS: 36415; 80048; 80053; 80306; 80320; 85025; 87636; 94640; 96372; 99285